=== PATIENT | female | born 1940 | race African-American/Black ===

== ENCOUNTER 2017-05-28 19:41 | Inpatient (IN) | payer MEDICARE, MEDICAID ==
[~2017-05-28] VITALS: Ht 157.5 cm; Wt 62.6 kg
[2017-05-28] MEDS ORDERED: MAG HYDROX/AL HYDROX/SIMETH 30 ML UDC PO PRN (20:00)
[2017-05-28] MEDS ORDERED: MAGNESIUM HYDROXIDE 30 ML UDC PO PRN (20:00)
[2017-05-28] MEDS ORDERED: ACETAMINOPHEN 325 MG TABLET PO PRN (20:00)
[2017-05-28] MEDS ORDERED: LORAZEPAM 0.5 MG TABLET PO PRN (20:00)
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
[2017-05-28] MEDS ORDERED: ATEN-170 PO (20:59)
[2017-05-28] MEDS ORDERED: MORP30CP13 PO (20:59)
[2017-05-28] MEDS ORDERED: LISI-656 PO (20:59)
[2017-05-28] MEDS ORDERED: DONE5TAB3 PO (20:59)
[2017-05-28] MEDS ORDERED: NITR0.4T6 SL (20:59)
[2017-05-28] MEDS ORDERED: OXYC-128 PO (20:59)
[2017-05-28] MEDS ORDERED: FLUO20CA36 PO (20:59)
[2017-05-28] MEDS ORDERED: GABA-534 PO (20:59)
[2017-05-28] MEDS ORDERED: ZOLP5TAB2 PO (20:59)
[2017-05-29] MEDS ORDERED: oxyCODONE/APAP (5/325 MG) 1 UDTAB TABLET ONE (00:06)
[2017-05-29] MEDS: oxyCODONE/APAP (5/325 MG) 1 UDTAB TABLET PO PRN ×3 (00:09→23:08)
--- NOTE | 2017-05-29 00:09 | NUR ---
GPS RN: DR. KEE CAME TO UNIT TO SEE THE PATIENT AND REQUESTED FOR PAIN MEDICATION MORPHINE, HE FURTHER EXPLAINED THAT SHE IS ORDERED PERCOCET OF THE MOMENT. PATIENT AGREED TO HAVE PERCOCET. COMPUTER TAPE LIBRARIAN-DUKE TOOK PERCOCET 5/325 ONE TAB AND SEAFOOD PROCESS WORKER ADMINISTERED TO PATIENT ORDERED. WILL MONITOR PATIENT'S PAIN STATUS. WILL ENDORSE TO DAY SHIFT NURSE.
[2017-05-29] MEDS: TEMAZEPAM 7.5 MG CAPSULE PO PRN (01:29)
--- NOTE | 2017-05-29 01:30 | NUR ---
GPS RN: PATIENT APPROACHED THE NURSE IN THE STATION. SHE REQUESTED FOR RESTORIL MEDICATION FOR SLEEP. CHARGING BOARD OPERATOR-DUKE TOOK RESTORIL 7.5 MG/CAP FROM [employer] AND RETENTION MANAGER ADMINISTERED IT TO PATIENT ORDERED. WILL MONITOR PATIENT'S SLEEP STATUS. WILL ENDORSE TO DAY SHIFT NURSE.
[2017-05-29 06:45] LABS: ALANINE AMINOTRANSFERASE 18 U/L (12-78); ALBUMIN 3.2 g/dL (3.4-5.0); ALKALINE PHOSPHATASE 70 U/L (46-116); ASPARTATE AMINOTRANSFERASE 24 U/L (15-37); BILIRUBIN,TOTAL 0.5 mg/dL (0.2-1.0); CALCIUM, SERUM 9.6 mg/dL (8.5-10.1); CARBON DIOXIDE 30 mmol/L (21-32); CHLORIDE 108 mmol/L (98-107); CREATININE 0.6 mg/dL (0.6-1.3); GLUCOSE 92 mg/dL (74-106); POTASSIUM 3.5 mmol/L (3.5-5.1); SODIUM SERUM 142 mmol/L (136-145); TOTAL PROTEIN, SERUM 7.6 g/dL (6.4-8.2); UREA NITROGEN, BLOOD 9 mg/dL (7-18)
--- NOTE | 2017-05-29 06:47 | NUR ---
GPS RN: SPOKE WITH CARLOS Moise REGARDING PATIENT'S ADMISSION TO THE UNIT. PROVIDED UNIT RULES AND POLICIES AND VISITING HOURS.
[2017-05-29 07:29] LABS: CHOLESTEROL 154 mg/dL (<200); HDL CHOLESTEROL 83 mg/dL (40-60); LDL 71 mg/dL (0-99); TRIGLYCERIDES 28 mg/dL (30-150)
[2017-05-29 08:00] VITALS: BP_SYST 110; BP_SYST 150; BP_DIAS 76; BP_DIAS 78
[2017-05-29] MEDS ORDERED: ATENOLOL 25 MG TABLET PO SCH (09:00)
[2017-05-29] MEDS ORDERED: LISINOPRIL (5MG) 5 MG TABLET PO SCH (09:00)
[2017-05-29] MEDS ORDERED: GABAPENTIN 300 MG CAPSULE PO SCH (09:00)
[2017-05-29] MEDS ORDERED: DONEPEZIL 5 MG TABLET PO SCH (09:00)
[2017-05-29] MEDS: GABAPENTIN 300 MG CAPSULE PO SCH (12:42)
--- NOTE | 2017-05-29 12:42 | NUR ---
GPS/RN PATIENT REPORTS GENERALIZED PAIN, ADMINISTERED PERCOCET 5/325, WILL CONTINUE TO MONITOR.
[2017-05-29] MEDS: DONEPEZIL 5 MG TABLET PO SCH (12:43)
[2017-05-29] MEDS: LISINOPRIL (5MG) 5 MG TABLET PO SCH ×2 (12:44→17:51)
[2017-05-29] MEDS: ATENOLOL 25 MG TABLET PO SCH ×2 (12:44→17:51)
--- NOTE | 2017-05-29 15:55 | NUR ---
Initial Discharge Plan Patient lives at [address] [place] [address], and wishes to return after discharge. Patient's granddaughter, Myriam [phone], is listed as the person to notify. Patient told social director that she does not want SW to have contact with the granddaughter. SW will follow up with MD and will work to form a safe and proper discharge.
[2017-05-29 16:06] VITALS: BP 147/104
[2017-05-29] MEDS: MORPHINE SULFATE SR 15 MG TABLET.SA PO SCH (16:48)
[2017-05-29 20:00] VITALS: BP 137/76
[2017-05-29 20:34] VITALS: BP 137/76
--- NOTE | 2017-05-29 23:10 | NUR ---
RN NOTES: PATIENT COMPLAINED OF PAIN OVER HER BACK, STATING SHE HAS LUPUS, SCALED AT 8-9/10. ADMINISTERED PERCOCET 5-325 MG PO. WILL CONT TO MONITOR.
[2017-05-30] MEDS: TEMAZEPAM 7.5 MG CAPSULE PO PRN ×2 (00:20→21:35)
--- NOTE | 2017-05-30 06:25 | NUR ---
RN NOTES: PATIENT SEEN WALKING DOWN HALLWAY, THEN TRIED TO OPEN MAIN DOOR TO GO OUT, SAYING, "I WANT TO SLEEP, BUT I CAN'T THE DOOR KEEPS GETTING OPENED." PATIENT APPEARS TO THINK THAT IT WAS THE DOOR TO HER ROOM. GUIDED PATIENT BACK TO HER ROOM.
[2017-05-30 08:35] VITALS: BP 142/77
[2017-05-30] MEDS: FLUOXETINE HCL 20 MG CAPSULE PO SCH (09:00)
[2017-05-30] MEDS: DONEPEZIL 5 MG TABLET PO SCH (09:43)
[2017-05-30] MEDS: GABAPENTIN 300 MG CAPSULE PO SCH (09:44)
[2017-05-30] MEDS: MORPHINE SULFATE SR 15 MG TABLET.SA PO SCH ×2 (09:44→17:12)
[2017-05-30] MEDS: LISINOPRIL (5MG) 5 MG TABLET PO SCH ×2 (09:45→17:13)
[2017-05-30] MEDS: ATENOLOL 25 MG TABLET PO SCH ×2 (09:46→17:12)
[2017-05-30] MEDS: oxyCODONE/APAP (5/325 MG) 1 UDTAB TABLET PO PRN (14:47)
--- NOTE | 2017-05-30 14:55 | NUR ---
patient informed SW that it was okay to contact the granddaughter.
[2017-05-30 16:00] VITALS: BP 130/85
--- NOTE | 2017-05-30 16:26 | NUR ---
With patient's permission, SW contact her granddaughter, Myriam [phone]. JANETH left a voicemail for Myriam with detailed contact information.
--- NOTE | 2017-05-30 19:30 | NUR ---
GPS RN NOTE, RECEIVED PATIENT AWAKE AND IN BED NO S/S OR COMPLAINTS OF PAIN AT THIS TIME. PATIENT IS DISPLAYING NO S/S OF APPARENT DISTRESS AT THIS TIME. PATIENT BREATHING IS UNLABORED WITH EQUAL RISE AND FALL OF THE CHEST. PATIENT IS ALERT AND ORIENTED X3 ON ROOM AIR WITH A SPOO2 95 %. PATIENT IS MED COMPLIANT, DISORGANIZED, AND NEEDS REORIENTATION. PATIENT DENIES SUICIDE IDEATIONS AND HOMICIDAL IDEATIONS AT THIS TIME. PATIENT ASSISTED WITH TURNING AND REPOSITIONING Q2HR AND PRN FOR COMFORT AND CIRCULATION. PATIENT HAS NO NEEDS AT THIS TIME. PATIENT EDUCATED ON THE USE OF THE CALL GAR. PATIENT BED SIDE RAILS UP X 2 FOR SAFETY. PATIENT BED IS LOCKED AND LOW WILL CONTINUE TO MONITOR AND MAINTAIN SAFETY Q15 MIN WITH THE HELP OF STAFF.
[2017-05-30 20:13] VITALS: BP 128/77
--- NOTE | 2017-05-30 21:35 | NUR ---
GPS RN NOTE, PATIENT HAS A COMPLAINT OF NOT BEING ABLE TO SLEEP AND IS REQUESTING RESTORIL AT THIS TIME. PATIENT VITAL SIGNS ARE STABLE. GAVE RESTORIL 7.5MG PO HS ORDERED. WILL REASSESS FOR INSOMNIA AND I WILL CONTINUE TO MONITOR THIS PATIENT.
--- NOTE | 2017-05-31 07:00 | NUR ---
RN OPENING NOTE PT RESTING CALM IN BED. DENIES SI/HI. DENIES AVH. MOVES ALL EXT. A&OX2. FREE FROM INJURY AT PRESENT. WILL CONT TO MONITOR.
[2017-05-31] MEDS: MORPHINE SULFATE SR 15 MG TABLET.SA PO SCH ×2 (08:25→16:26)
[2017-05-31] MEDS: LISINOPRIL (5MG) 5 MG TABLET PO SCH ×2 (08:26→16:27)
[2017-05-31] MEDS: GABAPENTIN 300 MG CAPSULE PO SCH (08:26)
[2017-05-31] MEDS: FLUOXETINE HCL 20 MG CAPSULE PO SCH (08:26)
[2017-05-31] MEDS: DONEPEZIL 5 MG TABLET PO SCH (08:26)
[2017-05-31] MEDS: ATENOLOL 25 MG TABLET PO SCH ×2 (08:27→16:27)
[2017-05-31 09:03] VITALS: BP 109/60
--- NOTE | 2017-05-31 09:45 | NUR ---
JANETH spoke with pt's granddaughter, Myriam [phone]. Myriam expressed some concerns about pt's past behavior, but stated that patient can return home and that she will care for her. Myriam stated that she will be able to pick patient up when it was time for discharge.
[2017-05-31] MEDS: oxyCODONE/APAP (5/325 MG) 1 UDTAB TABLET PO PRN (14:26)
[2017-05-31 16:31] VITALS: BP 124/79
--- NOTE | 2017-05-31 18:44 | NUR ---
RN CLOSING NOTE PT RESTING CALM IN BED. DENIES SI/HI. DENIES AVH. MOVES ALL EXT. A&OX2. FREE FROM INJURY AT PRESENT. WILL ENDORSE TO MICHAEL HURTADO.
[2017-05-31 19:54] VITALS: BP 100/66
[2017-05-31] MEDS: TEMAZEPAM 7.5 MG CAPSULE PO PRN (21:01)
[2017-06-01] MEDS: oxyCODONE/APAP (5/325 MG) 1 UDTAB TABLET PO PRN ×3 (06:36→20:59)
[2017-06-01 08:00] VITALS: BP 132/58
[2017-06-01] MEDS: GABAPENTIN 300 MG CAPSULE PO SCH (08:40)
[2017-06-01] MEDS: FLUOXETINE HCL 20 MG CAPSULE PO SCH (08:40)
[2017-06-01] MEDS: ATENOLOL 25 MG TABLET PO SCH ×2 (08:40→16:18)
[2017-06-01] MEDS: LISINOPRIL (5MG) 5 MG TABLET PO SCH ×2 (08:41→16:17)
[2017-06-01] MEDS: DONEPEZIL 5 MG TABLET PO SCH (08:41)
[2017-06-01] MEDS: MORPHINE SULFATE SR 15 MG TABLET.SA PO SCH ×2 (08:42→16:17)
[2017-06-01 16:00] VITALS: BP 127/87
[2017-06-01 20:00] VITALS: BP 100/71
--- NOTE | 2017-06-01 20:59 | NUR ---
GPS/RN NOTE: C/O GENERALIZED BODY PAIN, 6/10 ON PAIN SCALE, PERCOCET 5/325 MG TAB PO GIVEN.
[2017-06-01] MEDS: TEMAZEPAM 7.5 MG CAPSULE PO PRN (22:27)
--- NOTE | 2017-06-01 22:28 | NUR ---
GPS/RN NOTE: C/O INSOMNIA, TEMAZEPAM 7.5 MG CAP PO GIVEN.
[2017-06-02] MEDS: oxyCODONE/APAP (5/325 MG) 1 UDTAB TABLET PO PRN ×3 (05:43→20:39)
[2017-06-02 08:00] VITALS: BP 133/80
[2017-06-02] MEDS: DONEPEZIL 5 MG TABLET PO SCH (09:08)
[2017-06-02] MEDS: LISINOPRIL (5MG) 5 MG TABLET PO SCH ×2 (09:08→18:16)
[2017-06-02] MEDS: FLUOXETINE HCL 20 MG CAPSULE PO SCH (09:08)
[2017-06-02] MEDS: GABAPENTIN 300 MG CAPSULE PO SCH (09:08)
[2017-06-02] MEDS: ATENOLOL 25 MG TABLET PO SCH ×2 (09:09→18:16)
[2017-06-02] MEDS: MORPHINE SULFATE SR 15 MG TABLET.SA PO SCH ×2 (09:09→18:15)
--- NOTE | 2017-06-02 13:18 | NUR ---
RN NOTES ADMINISTERED PERCOCET 5/325 MG PO PRN FOR GENERALIZED PAIN 04/15, PER PATIENT REQUEST, V/S TAKEN BP -130/83, P-65, CONTINUED MONITORING.
[2017-06-02 16:00] VITALS: BP 117/70
[2017-06-02] MEDS ORDERED: [UNRECOGNIZED DRUG - OTHER] PO SCH (18:54)
[2017-06-02] MEDS ORDERED: [UNRECOGNIZED DRUG - OTHER] PO SCH (18:54)
[2017-06-02] MEDS: TEMAZEPAM 7.5 MG CAPSULE PO PRN (21:45)
--- NOTE | 2017-06-03 02:55 | NUR ---
GPS-RN PT IS WALKING IN THE HALLWAY, HOLDING HER CHEST. STAFF IS ASKING WHAT DO YOU NEED. PT STARTED TO COMPLAIN OF CHEST PAIN. ASSIST PATIENT BACK TO HER ROOM. PUT HER IN BED CHECK VITAL SIGNS BP 200/106 HR 80. GIVE NITROGLYCERIN 0.4MG SUBLINGUAL AT 0300, 0305, 0310. PT STILL COMPLAIN OF CHEST PAIN. CALLED RAPID RESPONSE. PAGED DR. ADAMS. ORDERED TO TRANSFER PT TO TELE.
[2017-06-03] MEDS: NITROGLYCERIN 0.4 MG/TAB BOTTLE SL PRN ×3 (03:00→03:10)
[2017-06-03 03:10] VITALS: BP 158/93
[2017-06-03] MEDS ORDERED: MORPHINE SULFATE INJ 4 MG/ML DISP.SYRIN ONE (03:25)
[2017-06-03 03:31] LABS: BASOPHILS # (AUTO) 0.1 /CMM (0.0-0.2); BASOPHILS % (AUTO) 0.9 % (0.0-2.0); EOSINOPHILS # (AUTO) 0.4 /CMM (0.0-0.7); EOSINOPHILS % (AUTO) 5.9 % (0.0-6.0); HEMATOCRIT 38 % (33-45); HEMOGLOBIN 12.1 g/dL (11.5-14.8); LYMPHOCYTES # (AUTO) 2.5 /CMM (0.8-4.8); LYMPHOCYTES % (AUTO) 35.1 % (20.0-44.0); MEAN CORPUSCULAR HEMOGLOBIN 27 PG (26.0-33.0); MEAN CORPUSCULAR HGB CONC 32 g/dl (31.0-36.0); MEAN CORPUSCULAR VOLUME 84 fL (82-100); MONOCYTES # (AUTO) 0.8 /CMM (0.1-1.30); MONOCYTES % (AUTO) 11.7 % (2.0-12.0); NEUTROPHILS # (AUTO) 3.3 /CMM (1.8-8.9); NEUTROPHILS % (AUTO) 46.4 % (43.0-81.0); PLATELET COUNT (AUTO) 283 /CMM (150-450); RDW COEFFICIENT OF VARIATION 13.9 (11.5-15.0); RED BLOOD CELL COUNT(AUTO) 4.49 MIL/uL (4.0-5.2); WHITE BLOOD COUNT (AUTO) 7.1 K/uL (4.3-11.0)
[2017-06-03 03:42] LABS: CALCIUM, SERUM 9.7 mg/dL (8.5-10.1); CARBON DIOXIDE 30 mmol/L (21-32); CHLORIDE 102 mmol/L (98-107); CREATININE 0.7 mg/dL (0.6-1.3); GLUCOSE 97 mg/dL (74-106); POTASSIUM 4.3 mmol/L (3.5-5.1); SODIUM SERUM 138 mmol/L (136-145); UREA NITROGEN, BLOOD 13 mg/dL (7-18)
[2017-06-03] MEDS ORDERED: ASPIRIN 325 MG TABLET ONE (03:43)
[2017-06-03 03:48] LABS: ALANINE AMINOTRANSFERASE 43 U/L (12-78); ALBUMIN 3.4 g/dL (3.4-5.0); ALKALINE PHOSPHATASE 109 U/L (46-116); ASPARTATE AMINOTRANSFERASE 90 U/L (15-37); BILIRUBIN,TOTAL 0.6 mg/dL (0.2-1.0); TROPONIN I < 0.017 ng/mL (0.00-0.056)
--- NOTE | 2017-06-03 03:59 | NUR ---
GPS RN PT TRANSFER TO TELE.
[2017-06-03] MEDS ORDERED: MORPHINE SULFATE INJ 4 MG/ML DISP.SYRIN IV ONE (04:00)
[2017-06-03] MEDS ORDERED: ASPIRIN 325 MG TABLET PO ONE (04:00)
[2017-06-03 04:09] LABS: MAGNESIUM 2.1 mg/dL (1.8-2.4); PHOSPHORUS 3.2 mg/dL (2.5-4.9)
== END 2017-06-03 03:55 | disposition home or self-care (01) | DRG 885 ==
LOC: GPS 19:41
PROVIDERS: ADMIT Psychiatry & Neurology Psychiatry; ATTEND Psychiatry & Neurology Psychiatry
DX: F33.2 Major depressive disorder, recurrent severe without psychotic features (principal); E44.1 Mild protein-calorie malnutrition; G62.9 Polyneuropathy, unspecified; R45.851 Suicidal ideations; F03.90 Unspecified dementia, unspecified severity, without behavioral disturbance, psychotic disturbance, mood disturbance, and anxiety; M79.7 Fibromyalgia; I10 Essential (primary) hypertension; G89.4 Chronic pain syndrome; Z79.899 Other long term (current) drug therapy; F41.9 Anxiety disorder, unspecified; F29 Unspecified psychosis not due to a substance or known physiological condition; Z73.6 Limitation of activities due to disability
CPT/HCPCS: 36415; 80053-TC; 80061-TC; 83735-TC; 84100-TC; 84484-TC; 85025-TC; 87081-TC; J2270; Z7610

== ENCOUNTER 2017-06-03 04:29 | Inpatient (IN) | payer MEDICARE, MEDICAID ==
[~2017-06-03] VITALS: Ht 157.5 cm; Wt 56.7 kg
--- NOTE | 2017-06-03 04:00 | NUR ---
CEMENT FINISHER NOTES Received patient in no apparent distress. patient is alert and oriented x3, able to make needs known. No SOB noted, O2 inhalation via nasal cannula in place saturating 98%. No c/o pain or discomfort at this time. Patient was transferred from [facility] and patient is on a 72 hr hold,. patient appears to be relaxed and compliant for nursing care. patient is cooperative during admission interview. All needs attended. patient oriented to room, provided a quiet and comfortable environment. Skin assessment done, no skin breakdown noted. Called Md for admission orders, notifird of the admission. Will continue to monitor patient.
[~2017-06-03 04:29] MED LIST: ATEN-170 PO; DONE5TAB3 PO; GABA-534 PO; LISI-656 PO; MORP30CP13 PO; NITR0.4T6 SL; OXYC-128 PO
[2017-06-03] MEDS ORDERED: HYDROCODONE/APAP 5/325MG 1 EACH TABLET PO PRN (06:30)
[2017-06-03] MEDS ORDERED: MAG HYDROX/AL HYDROX/SIMETH 30 ML UDC PO PRN (06:30)
[2017-06-03] MEDS ORDERED: NITROGLYCERIN 0.4 MG/TAB BOTTLE SL PRN (06:30)
[2017-06-03] MEDS ORDERED: Z GUARD REMEDY 2 OZ OINT TP PRN (06:30)
[2017-06-03] MEDS ORDERED: MAGNESIUM HYDROXIDE 30 ML UDC PO PRN (06:30)
[2017-06-03] MEDS ORDERED: ONDANSETRON HCL/PF 4 MG/2 ML VIAL IVP PRN (06:30)
[2017-06-03] MEDS ORDERED: ACETAMINOPHEN 325 MG TABLET PO PRN (06:30)
--- NOTE | 2017-06-03 07:30 | NUR ---
RN MS NOTES PT IN BED, ASLEEP, RESPIRATIONS NORMAL AND NOT LABORED, EASY TO AROUSE, NO COMPLAINT OF PAIN AT THIS TIME, CALL LIGHT WITHIN REACH, SITTER AT BEDSIDE.
[2017-06-03 08:00] VITALS: BP 137/71
[2017-06-03] MEDS ORDERED: GABAPENTIN 300 MG CAPSULE PO SCH (09:00)
[2017-06-03] MEDS: DONEPEZIL 5 MG TABLET PO SCH (09:24)
[2017-06-03] MEDS: LISINOPRIL (5MG) 5 MG TABLET PO SCH ×2 (09:24→17:00)
[2017-06-03] MEDS: ATENOLOL 25 MG TABLET PO SCH ×2 (09:24→17:00)
[2017-06-03] MEDS: MORPHINE SULFATE SR 15 MG TABLET.SA PO SCH ×2 (09:47→17:18)
[2017-06-03 11:35] LABS: THYROID STIMULATING HORMONE 0.858 uIU/mL (0.358-3.74)
[2017-06-03] MEDS: oxyCODONE/APAP (5/325 MG) 1 UDTAB TABLET PO SCH (12:45)
[2017-06-03] MEDS: ASPIRIN 81 MG TAB.CHEW PO SCH (12:45)
[2017-06-03] MEDS: ENOXAPARIN SODIUM 40 MG/0.4 ML DISP.SYRIN SQ SCH (12:51)
--- NOTE | 2017-06-03 13:00 | NUR ---
ELEMENTARY READING TUTOR NOTES PT IN BED, DUE MEDICATIONS GIVEN ORDERED, SEEN BY DR. NAVAS AND DR. OCHOA, PLAN OF CARE DISCUSSED WITH PT, VERBALIZED UNDERSTANDING, SO FAR COMPLIANT AND COOPERATIVE WITH NURSING CARE, SITTER AT BEDSIDE.
--- NOTE | 2017-06-03 19:00 | NUR ---
PE ELECTRICAL ENGINEER NOTES PT IN BED, AWAKE, ALERT AND ORIENTED, PM MEDS GIVEN ORDERED, CALM AND COOPERATIVE WITH CARE, FOR [place] TOMORROW, PT INFORMED, CONSENT GIVEN, NO BEHAVIOR PROBLEM NOTED, PM CARE RENDERED, ALL NEEDS ATTENDED.
--- NOTE | 2017-06-03 19:35 | NUR ---
NIGHT COORDINATOR NOTE RECEIVED PATIENT FROM DAY SHIFT, PATIENT IS ALERT AND ORIENTEDX3, ON BED REST WITH 1:1 SITTER DUE TO 5250 HOLD. NO S/S OF RESPIRATORY DISTRESS AND NO COMPLAINS OF CHEST PAIN NOTED. TELE MONITOR SB 56. SRX2, BED IN LOW POSITION, CALL LIGHT WITHIN REACH, WILL CONTINUE TO MONITOR PATIENT.
[2017-06-03 20:00] VITALS: BP 130/76
[2017-06-03] MEDS: ZOLPIDEM TARTRATE 5 MG TABLET PO PRN ×2 (21:48→23:32)
--- NOTE | 2017-06-03 22:20 | NUR ---
FEATHER DRYING MACHINE OPERATOR NOTE PATIENT COMPLAINS OF LEFT SHOULDER PAIN, WANTS TO TAKE PERCOCET. CURRENT ORDER IS PERCOCET DAILY AT NOON. SPOKE WITH DR. ADAMS, GOT AN ORDER OF PERCOCET 5/325MG PO ONCE ONLY. ORDERS PUT IN AND WILL CARRY OUT.
[2017-06-03] MEDS ORDERED: oxyCODONE/APAP (5/325 MG) 1 UDTAB TABLET PO ONE (22:30)
[2017-06-03 23:15] VITALS: BP 130/76
--- NOTE | 2017-06-03 23:47 | NUR ---
SHOE RECONDITIONER NOTE PATIENT COMPLAINS OF CHEST PAIN 5/10, BP 154/80 PULSE 66. TELE MONITOR SR 70. NITRO SL 0.4MG GIVEN.
[2017-06-04 06:00] VITALS: BP 161/96
--- NOTE | 2017-06-04 06:38 | NUR ---
PROFESSIONAL SECURITY OFFICER NOTE PATIENT IS SLEEPING IN BED COMFORTABLY, NO S/S OF RESPIRATORY DISTRESS NOTED. IV ON LEFT FA IS PATENT AND INTACT, SL ONLY. 1:1 SITTER FOR SAFETY. TELE MONITOR SR 66. WILL ENDORSE TO DAY SHIFT NURSE FOR DIYA.
[2017-06-04 07:05] VITALS: BP 161/96
--- NOTE | 2017-06-04 07:34 | NUR ---
COMMERCIAL LOAN REVIEWER OPENING NOTES PATIENT IN BED SLEEPING COMFORTABLY, AROUSES EASILY. A/OX3. NO ACUTE DISTRESS, NO SOB NOTED. DENIES PAIN AT THIS TIME. IV SITE INTACT AND PATENT. TELE SR 68. SITTER ON BEDSIDE FOR SAFETY. BED IN LOW POSITION, LOCKED, SIDERAILS UP X2. WILL CONTINUE TO MONITOR ACCORDINGLY.
[2017-06-04] MEDS: MORPHINE SULFATE SR 15 MG TABLET.SA PO SCH ×2 (09:25→16:53)
[2017-06-04 09:46] LABS: BASOPHILS # (AUTO) 0.1 /CMM (0.0-0.2); BASOPHILS % (AUTO) 0.9 % (0.0-2.0); EOSINOPHILS # (AUTO) 0.2 /CMM (0.0-0.7); EOSINOPHILS % (AUTO) 4.6 % (0.0-6.0); HEMATOCRIT 39 % (33-45); HEMOGLOBIN 12.6 g/dL (11.5-14.8); LYMPHOCYTES # (AUTO) 1.4 /CMM (0.8-4.8); LYMPHOCYTES % (AUTO) 26.1 % (20.0-44.0); MEAN CORPUSCULAR HEMOGLOBIN 27 PG (26.0-33.0); MEAN CORPUSCULAR HGB CONC 32 g/dl (31.0-36.0); MEAN CORPUSCULAR VOLUME 83 fL (82-100); MONOCYTES # (AUTO) 0.5 /CMM (0.1-1.30); MONOCYTES % (AUTO) 9.3 % (2.0-12.0); NEUTROPHILS # (AUTO) 3.1 /CMM (1.8-8.9); NEUTROPHILS % (AUTO) 59.1 % (43.0-81.0); PLATELET COUNT (AUTO) 285 /CMM (150-450); RDW COEFFICIENT OF VARIATION 13.7 (11.5-15.0); RED BLOOD CELL COUNT(AUTO) 4.72 MIL/uL (4.0-5.2); WHITE BLOOD COUNT (AUTO) 5.3 K/uL (4.3-11.0)
--- NOTE | 2017-06-04 09:55 | NUR ---
RN NOTES: MD VISIT SEEN AND EXAMINED BY DR. OCHOA WITH VERBAL ORDERS FOR COLACE 100MG PO BID AND GIVE INFLUENZA VACCINE. ORDERS READ BACK AND CARRIED OUT AND ACKNOWLEDGED. ALSO PT C/O CONSTIPATION, AND OKAY TO DO MANUAL DISIMPACTION PER MD STATED.
[2017-06-04] MEDS ORDERED: FLU VACC QS 2017-18(36MOS+)/PF 0.5 ML DISP.SYRIN IM ONE (10:00)
[2017-06-04] MEDS: ASPIRIN 81 MG TAB.CHEW PO SCH (10:13)
[2017-06-04] MEDS: GABAPENTIN 100 MG CAPSULE PO SCH ×2 (10:13→16:53)
[2017-06-04] MEDS: DONEPEZIL 5 MG TABLET PO SCH (10:13)
[2017-06-04] MEDS: ATENOLOL 25 MG TABLET PO SCH ×2 (10:14→16:53)
[2017-06-04] MEDS: LISINOPRIL (5MG) 5 MG TABLET PO SCH ×2 (10:15→16:52)
--- NOTE | 2017-06-04 10:15 | NUR ---
RN NOTES PER DR NAVAS, OK TO GIVE AM MEDS
[2017-06-04 10:17] LABS: CALCIUM, SERUM 9.5 mg/dL (8.5-10.1); CARBON DIOXIDE 29 mmol/L (21-32); CHLORIDE 105 mmol/L (98-107); CREATININE 0.6 mg/dL (0.6-1.3); GLUCOSE 102 mg/dL (74-106); MAGNESIUM 1.9 mg/dL (1.8-2.4); PHOSPHORUS 2.5 mg/dL (2.5-4.9); POTASSIUM 3.7 mmol/L (3.5-5.1); SODIUM SERUM 140 mmol/L (136-145); UREA NITROGEN, BLOOD 9 mg/dL (7-18)
[2017-06-04 10:18] LABS: CHOLESTEROL 165 mg/dL (<200); HDL CHOLESTEROL 80 mg/dL (40-60); LDL 80 mg/dL (0-99); TRIGLYCERIDES 63 mg/dL (30-150)
[2017-06-04] MEDS: ENOXAPARIN SODIUM 40 MG/0.4 ML DISP.SYRIN SQ SCH (10:19)
[2017-06-04] MEDS: DOCUSATE SODIUM 100 MG CAPSULE PO SCH ×2 (10:21→16:52)
[2017-06-04] MEDS ORDERED: REGADENOSON 0.4 MG/5 ML DISP.SYRIN IVP ONE (10:30)
--- NOTE | 2017-06-04 11:15 | NUR ---
ENGINEERING MECHANIC: P.T. EVAL UP WITH P.T. USING OWN CANE, PT TOLERATED.
--- NOTE | 2017-06-04 11:57 | NUR ---
teletype telegrapher: notes tele removed as ordered.
[2017-06-04] MEDS: oxyCODONE/APAP (5/325 MG) 1 UDTAB TABLET PO SCH (12:18)
--- NOTE | 2017-06-04 13:00 | NUR ---
M/S RN: NOTES TAKEN DOWN FOR STRESS TEST VIA W/C AT THIS TIME.
--- NOTE | 2017-06-04 14:13 | NUR ---
M/S RN: NOTES BACK FROM STRESS TEST AND TO BE WIRELESS COMMUNICATIONS ENGINEER AGAIN IN AN HOUR FOR PHASE 2 PER TREMAYNE. LUNCH SERVED. HOB ELEVATED. REMAINS ON 1:1 SITTER. DENIES SI/HI AT THIS TIME. WILL CONTINUE TO MONITOR.
--- NOTE | 2017-06-04 16:45 | NUR ---
M/S RN: NOTES STRESS TEST COMPLETED, PT BACK TO BED. CONTINUE ON 1:1 SITTER. INSTRUCTED TO CALL FOR ASSISTANCE. WILL CONTINUE TO MONITOR.
[2017-06-04 16:49] VITALS: BP 158/87
--- NOTE | 2017-06-04 19:20 | NUR ---
RN CLOSING NOTES PATIENT IN BED RESTING. NO ACUTE DISTRESS, NO SOB NOTED. ALL NEEDS ATTENDED AND PROVIDED. SITTER ON BEDSIDE. KEPT PATIENT SAFE AND COMFORTABLE. BED IN LOW POSITION, LOCKED, SIDERAILS UPX2. CALL LIGHT IN REACH. ENDORSED TO NIGHT RN FOR DIYA.
--- NOTE | 2017-06-04 19:35 | NUR ---
MS RN INITIAL NOTES PT IS IN BED A/O X3, IN GOOD SPIRITS. ABLE TO MAKE NEEDS KNOWN. ON 1:1 SITTER. NO SIGNS OF SOB OR DISTRESS. BREATHING EVENLY AND UNLABORED ON ROOM AIR. BED IS IN LOW AN LOCKED POSITION, CALL LIGHT WITHIN REACH. WILL CONTINUE TO MONITOR
[2017-06-04 20:00] VITALS: BP 142/82
[2017-06-04] MEDS ORDERED: GABAPENTIN 300 MG CAPSULE PO SCH (22:00)
[2017-06-04] MEDS: ZOLPIDEM TARTRATE 5 MG TABLET PO PRN (22:01)
[2017-06-05 01:00] VITALS: BP 142/86
--- NOTE | 2017-06-05 06:14 | NUR ---
MS RN NOTE PATIENT IS SLEEPING IN BED COMFORTABLY, PT HAS BEEN CALM AND COOPERATIVE THROUGHOUT THE SHIFT. NO S/S OF RESPIRATORY DISTRESS NOTED. 1:1 SITTER FOR SAFETY. WILL ENDORSE TO DAY SHIFT NURSE.
[2017-06-05 06:59] LABS: BASOPHILS % (AUTO) 0.7 % (0.0-2.0); EOSINOPHILS # (AUTO) 0.4 /CMM (0.0-0.7); HEMATOCRIT 36 % (33-45); HEMOGLOBIN 11.6 g/dL (11.5-14.8); LYMPHOCYTES # (AUTO) 1.5 /CMM (0.8-4.8); LYMPHOCYTES % (AUTO) 25.2 % (20.0-44.0); MEAN CORPUSCULAR HEMOGLOBIN 27 PG (26.0-33.0); MEAN CORPUSCULAR HGB CONC 33 g/dl (31.0-36.0); MEAN CORPUSCULAR VOLUME 84 fL (82-100); MONOCYTES # (AUTO) 0.7 /CMM (0.1-1.30); MONOCYTES % (AUTO) 12.2 % (2.0-12.0); NEUTROPHILS # (AUTO) 3.3 /CMM (1.8-8.9); NEUTROPHILS % (AUTO) 55.9 % (43.0-81.0); PLATELET COUNT (AUTO) 260 /CMM (150-450); RDW COEFFICIENT OF VARIATION 13.5 (11.5-15.0); RED BLOOD CELL COUNT(AUTO) 4.24 MIL/uL (4.0-5.2); WHITE BLOOD COUNT (AUTO) 5.9 K/uL (4.3-11.0)
[2017-06-05 07:25] LABS: CALCIUM, SERUM 9.1 mg/dL (8.5-10.1); CARBON DIOXIDE 26 mmol/L (21-32); CHLORIDE 104 mmol/L (98-107); CREATININE 0.6 mg/dL (0.6-1.3); GLUCOSE 94 mg/dL (74-106); MAGNESIUM 1.9 mg/dL (1.8-2.4); PHOSPHORUS 3.5 mg/dL (2.5-4.9); POTASSIUM 3.4 mmol/L (3.5-5.1); SODIUM SERUM 140 mmol/L (136-145); UREA NITROGEN, BLOOD 10 mg/dL (7-18)
--- NOTE | 2017-06-05 07:33 | NUR ---
RN OPENING NOTES PATIENT IN BED ASLEEP, AROUSED EASILY. A/OX3. NO ACUTE DISTRESS, NO SOB NOTED. DENIES PAIN AT THIS TIME. KEPT SAFE AND COMFORTABLE. BED IN LOW POSITION, LOCKED, SIDERAILS UPX2. CALL LIGHT WITHIN REACH. WILL CONTINUE TO MONITOR ACCORDINGLY.
[2017-06-05 08:37] VITALS: BP 129/77
[2017-06-05] MEDS ORDERED: FLUOXETINE HCL 20 MG CAPSULE PO SCH (09:00)
[2017-06-05] MEDS: ENOXAPARIN SODIUM 40 MG/0.4 ML DISP.SYRIN SQ SCH (09:55)
[2017-06-05] MEDS: LISINOPRIL (5MG) 5 MG TABLET PO SCH (09:56)
[2017-06-05] MEDS: ATENOLOL 25 MG TABLET PO SCH (09:57)
[2017-06-05] MEDS: GABAPENTIN 100 MG CAPSULE PO SCH (09:57)
[2017-06-05] MEDS: DOCUSATE SODIUM 100 MG CAPSULE PO SCH (09:57)
[2017-06-05] MEDS: ASPIRIN 81 MG TAB.CHEW PO SCH (09:58)
[2017-06-05] MEDS: DONEPEZIL 5 MG TABLET PO SCH (09:58)
[2017-06-05] MEDS: MORPHINE SULFATE SR 15 MG TABLET.SA PO SCH (10:08)
[2017-06-05] MEDS ORDERED: ASPI81TA2 PO (12:11)
[2017-06-05] MEDS ORDERED: DOCU-25 PO (12:11)
[2017-06-05] MEDS: oxyCODONE/APAP (5/325 MG) 1 UDTAB TABLET PO SCH (12:36)
[2017-06-05] MEDS ORDERED: POTASSIUM CHLORIDE 20 MEQ TAB.PRT.SR PO SCH (13:00)
[2017-06-05 14:00] VITALS: BP 145/67
--- NOTE | 2017-06-05 14:30 | NUR ---
RN NOTES DISCHARGE PATIENT TO GPS, ACCOMPANIED BY TREMAYNE DAVIDSON. REPORT GIVEN TO BRYANT LEOS FROM GPS. DISCHARGE INSTRUCTIONS/EXITCARE DONE. DISCHARGE PAPERWORK GIVEN. ALL BELONGINGS GIVEN BACK TO PATIENT. D/C IV SITE, NO COMPLICATIONS, NO BLEEDING NOTED.
== END 2017-06-05 14:34 | DRG 313 ==
LOC: UNDOADMIN 04:29 → TELE 04:29 → MED 06-04 11:00
PROVIDERS: ADMIT Family Medicine; ATTEND Internal Medicine
DX: R07.89 Other chest pain (principal); I25.10 Atherosclerotic heart disease of native coronary artery without angina pectoris; F32.3 Major depressive disorder, single episode, severe with psychotic features; G62.9 Polyneuropathy, unspecified; F03.90 Unspecified dementia, unspecified severity, without behavioral disturbance, psychotic disturbance, mood disturbance, and anxiety; E78.5 Hyperlipidemia, unspecified; G89.4 Chronic pain syndrome; I10 Essential (primary) hypertension; F29 Unspecified psychosis not due to a substance or known physiological condition; M79.7 Fibromyalgia; K59.00 Constipation, unspecified; I25.2 Old myocardial infarction; Z79.899 Other long term (current) drug therapy
CPT/HCPCS: 36415; 80048-TC; 80061-TC; 82306; 83735-TC; 84100-TC; 84439-TC; 84443-TC; 84484-TC; 85025-TC; 87081-TC; 93307-TC; A9502; J1650; J2785; Q2036

== ENCOUNTER 2017-06-05 14:52 | Inpatient (IN) | payer MEDICARE, MEDICAID ==
[~2017-06-05] VITALS: Ht 160 cm; Wt 58.1 kg
[~2017-06-05 14:52] MED LIST changes: +ASPI81TA2 PO; +DOCU-25 PO
[2017-06-05 15:11] VITALS: BP 161/86
--- NOTE | 2017-06-05 15:11 | NUR ---
MERGERS AND ACQUISITIONS CONSULTANT NOTES PATIENT ADMITTED FROM [facility] ON 5249 HOLD DX OF PSYCHOSIS NOS, DEPRESSION, BIPOLAR D/O. PATIENT A/O X2/3, MED COMPLIANT, NO C/ O PAIN AT THIS TIME, NO RESPIRATORY DISTRESS. V/S TAKEN T-97.8, P-63, R-19, O2-97 ROOM AIR, BP -161/86. MRSA OF NARES SWAB TAKEN. ON FACE TO FACE ASSESSMENT PATIENT DENIED SI/HI AT THIS TIME. SKIN ASSESSMENT DONE, SKIN CLEAR. PATIENT AMBULATORY, NEED SOME PARTY PLAN SALES AGENT ADL'S, AND BATHROOM, BELONGING AND CONTRABAND CHECKED. DR KEE, AND DR SWANSON AWARE OF NEW PATIENT, AND NEW MEDICATION. PATIENT RIGHT HAND BOOK GIVEN, AND EXPLAINED TO. CONTINUED MONITORING.
[2017-06-05 15:36] VITALS: BP 161/86
[2017-06-05] MEDS: oxyCODONE/APAP (5/325 MG) 1 UDTAB TABLET PO SCH ×2 (16:00→17:56)
[2017-06-05] MEDS ORDERED: MAG HYDROX/AL HYDROX/SIMETH 30 ML UDC PO PRN (16:30)
[2017-06-05] MEDS ORDERED: LORAZEPAM 0.5 MG TABLET PO PRN (16:30)
[2017-06-05] MEDS ORDERED: MAGNESIUM HYDROXIDE 30 ML UDC PO PRN (16:30)
[2017-06-05] MEDS: DOCUSATE SODIUM 100 MG CAPSULE PO SCH ×2 (17:00→17:56)
[2017-06-05] MEDS: ATENOLOL 25 MG TABLET PO SCH ×2 (17:00→17:57)
[2017-06-05] MEDS: LISINOPRIL (5MG) 5 MG TABLET PO SCH ×2 (17:00→17:56)
--- NOTE | 2017-06-05 17:00 | NUR ---
rn notes PATIENT REFUSED BP MEDICATION, REFUSED V/S TO BED TAKEN, REFUSED PAIN MEDICATION, AND REFUSED DINNER, PATIENT AMBULATING IN THE HALLWAY, SAFETY PRECAUTION MAINTAINED ALL THE TIME.
--- NOTE | 2017-06-05 19:00 | NUR ---
RN NOTES PATIENT SITTING IN THE JOSEPH CHAIR, NO ACUTE DISTRESS, STILL REFUSED V/S TO BE TAKEN, SAFETY PRECAUTION MAINTAINED ALL THE TIME, ENDORSED ONCOMING NURSE FOR CONTINUATION OF CARE.
[2017-06-05] MEDS: MORPHINE SULFATE SR 15 MG TABLET.SA PO SCH (21:00)
[2017-06-06 08:00] VITALS: BP 180/99
[2017-06-06] MEDS: FLUOXETINE HCL 20 MG CAPSULE PO SCH (09:11)
[2017-06-06] MEDS: ATENOLOL 25 MG TABLET PO SCH ×2 (09:12→16:20)
[2017-06-06] MEDS: GABAPENTIN 300 MG CAPSULE PO SCH (09:12)
[2017-06-06] MEDS: DOCUSATE SODIUM 100 MG CAPSULE PO SCH ×2 (09:12→16:20)
[2017-06-06] MEDS: ASPIRIN 81 MG TAB.CHEW PO SCH (09:12)
[2017-06-06] MEDS: DONEPEZIL 5 MG TABLET PO SCH (09:12)
[2017-06-06] MEDS: LISINOPRIL (5MG) 5 MG TABLET PO SCH ×2 (09:12→16:20)
[2017-06-06] MEDS: MORPHINE SULFATE SR 15 MG TABLET.SA PO SCH ×2 (09:13→21:23)
--- NOTE | 2017-06-06 09:36 | NUR ---
PT REFUSING TO HAVE LAB DRAWS THIS MORNING. EXPLAINED TO HER THE NECESSITY TO SEE IF SHE HAS ANY LAB ABNORMALITIES, BUT PT STILL REFUSES. THIS MORNING SHE REFUSED MORNING MEDICATIONS INITIALLY BUT AFTER THOROUGHLY EXPLAINING TO HER SHE AGREED TO TAKE THEM.
--- NOTE | 2017-06-06 11:15 | NUR ---
SW attests that the information obtained by the previous assessment is still valid. There have been no new changes in patient's history since her discharge from the [facility] on May 24. Patient had been in the med surg floor for chest pains, but is now medically cleared and is back at the psych unit. Upon face to face with public health social worker, patient presented with a sad affect/mood. Patient's motor activity was calm. Patient denied suicidal and homicidal ideation. Patient reported no auditory or visual hallucinations. SW asked patient if she was still comfortable going home with her granddaughter and patient stated that she was. Addendum: 06/06/17 at 1118 by LEE FOWLER patient's call or contact centre manager is her granddaughter, Myriam, ,
[2017-06-06] MEDS: oxyCODONE/APAP (5/325 MG) 1 UDTAB TABLET PO SCH (12:19)
[2017-06-06 16:00] VITALS: BP 129/59
[2017-06-06 20:00] VITALS: BP 122/80
[2017-06-07 08:00] VITALS: BP 120/78
[2017-06-07] MEDS: DOCUSATE SODIUM 100 MG CAPSULE PO SCH ×2 (08:23→16:17)
[2017-06-07] MEDS: LISINOPRIL (5MG) 5 MG TABLET PO SCH ×2 (08:23→16:18)
[2017-06-07] MEDS: GABAPENTIN 300 MG CAPSULE PO SCH (08:23)
[2017-06-07] MEDS: FLUOXETINE HCL 20 MG CAPSULE PO SCH (08:23)
[2017-06-07] MEDS: ASPIRIN 81 MG TAB.CHEW PO SCH (08:24)
[2017-06-07] MEDS: DONEPEZIL 5 MG TABLET PO SCH (08:24)
[2017-06-07] MEDS: ATENOLOL 25 MG TABLET PO SCH ×2 (08:24→16:18)
[2017-06-07] MEDS: MORPHINE SULFATE SR 15 MG TABLET.SA PO SCH ×2 (08:34→21:30)
[2017-06-07] MEDS: oxyCODONE/APAP (5/325 MG) 1 UDTAB TABLET PO SCH (12:03)
[2017-06-07 15:56] VITALS: BP 131/78
[2017-06-07 20:00] VITALS: BP 111/76
--- NOTE | 2017-06-08 08:00 | NUR ---
GPS RN AM NOTES PATIENT A/O X2/3, MED COMPLIANT, NO C/ O PAIN AT THIS TIME, NO RESPIRATORY DISTRESS. SKIN CLEAR. PATIENT AMBULATORY, NEED SOME EDGING MACHINE FEEDER ADL'S, AND BATHROOM.CONTINUED MONITORING.
[2017-06-08] MEDS: ATENOLOL 25 MG TABLET PO SCH ×2 (09:00→16:46)
[2017-06-08] MEDS: LISINOPRIL (5MG) 5 MG TABLET PO SCH ×2 (09:00→16:46)
[2017-06-08] MEDS: FLUOXETINE HCL 20 MG CAPSULE PO SCH (09:07)
[2017-06-08] MEDS: MORPHINE SULFATE SR 15 MG TABLET.SA PO SCH ×2 (09:07→21:09)
[2017-06-08] MEDS: ASPIRIN 81 MG TAB.CHEW PO SCH (09:07)
[2017-06-08] MEDS: DOCUSATE SODIUM 100 MG CAPSULE PO SCH ×2 (09:07→16:47)
[2017-06-08] MEDS: DONEPEZIL 5 MG TABLET PO SCH (09:08)
[2017-06-08] MEDS: GABAPENTIN 300 MG CAPSULE PO SCH (09:08)
[2017-06-08] MEDS: oxyCODONE/APAP (5/325 MG) 1 UDTAB TABLET PO SCH ×2 (12:00→18:23)
--- NOTE | 2017-06-08 12:45 | NUR ---
PT HAS BEEN REFUSING BP TO BE CHECKED AND REFUSED BP MEDS WELL INSPITE OF EXPLAINING ITS RISKS AND CONSEQUENCES.
[2017-06-08 16:00] VITALS: BP 155/93
[2017-06-08 20:00] VITALS: BP 159/90
[2017-06-08] MEDS: TEMAZEPAM 7.5 MG CAPSULE PO PRN (22:03)
[2017-06-09 08:00] VITALS: BP 151/99
[2017-06-09] MEDS: DOCUSATE SODIUM 100 MG CAPSULE PO SCH ×2 (08:39→17:26)
[2017-06-09] MEDS: MORPHINE SULFATE SR 15 MG TABLET.SA PO SCH ×2 (08:39→21:01)
[2017-06-09] MEDS: GABAPENTIN 300 MG CAPSULE PO SCH (08:40)
[2017-06-09] MEDS: FLUOXETINE HCL 20 MG CAPSULE PO SCH (08:40)
[2017-06-09] MEDS: ATENOLOL 25 MG TABLET PO SCH ×2 (08:40→17:25)
[2017-06-09] MEDS: DONEPEZIL 5 MG TABLET PO SCH (08:41)
[2017-06-09] MEDS: LISINOPRIL (5MG) 5 MG TABLET PO SCH ×2 (08:41→17:26)
[2017-06-09] MEDS: ASPIRIN 81 MG TAB.CHEW PO SCH (08:42)
[2017-06-09] MEDS: oxyCODONE/APAP (5/325 MG) 1 UDTAB TABLET PO SCH (12:06)
[2017-06-09 16:08] VITALS: BP 121/84
[2017-06-09 20:00] VITALS: BP 150/96
[2017-06-09] MEDS: TEMAZEPAM 7.5 MG CAPSULE PO PRN (22:26)
[2017-06-10 06:25] VITALS: BP 135/75
[2017-06-10 08:00] VITALS: BP 142/88
[2017-06-10] MEDS: ASPIRIN 81 MG TAB.CHEW PO SCH (08:16)
[2017-06-10] MEDS: MORPHINE SULFATE SR 15 MG TABLET.SA PO SCH ×2 (08:17→21:11)
[2017-06-10] MEDS: ATENOLOL 25 MG TABLET PO SCH ×2 (08:17→17:08)
[2017-06-10] MEDS: DOCUSATE SODIUM 100 MG CAPSULE PO SCH ×2 (08:17→17:06)
[2017-06-10] MEDS: DONEPEZIL 5 MG TABLET PO SCH (08:18)
[2017-06-10] MEDS: LISINOPRIL (5MG) 5 MG TABLET PO SCH ×2 (08:18→17:07)
[2017-06-10] MEDS: FLUOXETINE HCL 20 MG CAPSULE PO SCH (08:18)
[2017-06-10] MEDS: GABAPENTIN 300 MG CAPSULE PO SCH (08:33)
[2017-06-10 10:47] LABS: BASOPHILS % (AUTO) 0.7 % (0.0-2.0); EOSINOPHILS # (AUTO) 0.4 /CMM (0.0-0.7); EOSINOPHILS % (AUTO) 7.2 % (0.0-6.0); HEMATOCRIT 35 % (33-45); HEMOGLOBIN 11.3 g/dL (11.5-14.8); LYMPHOCYTES # (AUTO) 1.4 /CMM (0.8-4.8); LYMPHOCYTES % (AUTO) 24.4 % (20.0-44.0); MEAN CORPUSCULAR HEMOGLOBIN 27 PG (26.0-33.0); MEAN CORPUSCULAR HGB CONC 32 g/dl (31.0-36.0); MEAN CORPUSCULAR VOLUME 84 fL (82-100); MONOCYTES # (AUTO) 0.7 /CMM (0.1-1.30); MONOCYTES % (AUTO) 11.6 % (2.0-12.0); NEUTROPHILS # (AUTO) 3.2 /CMM (1.8-8.9); NEUTROPHILS % (AUTO) 56.1 % (43.0-81.0); PLATELET COUNT (AUTO) 261 /CMM (150-450); RDW COEFFICIENT OF VARIATION 13.4 (11.5-15.0); RED BLOOD CELL COUNT(AUTO) 4.18 MIL/uL (4.0-5.2); WHITE BLOOD COUNT (AUTO) 5.7 K/uL (4.3-11.0)
[2017-06-10 10:55] LABS: CALCIUM, SERUM 9.3 mg/dL (8.5-10.1); CARBON DIOXIDE 28 mmol/L (21-32); CHLORIDE 105 mmol/L (98-107); CREATININE 0.7 mg/dL (0.6-1.3); GLUCOSE 90 mg/dL (74-106); POTASSIUM 3.8 mmol/L (3.5-5.1); SODIUM SERUM 140 mmol/L (136-145); UREA NITROGEN, BLOOD 12 mg/dL (7-18)
[2017-06-10] MEDS: oxyCODONE/APAP (5/325 MG) 1 UDTAB TABLET PO SCH (11:54)
[2017-06-10 15:21] VITALS: BP 124/92
[2017-06-10 21:17] VITALS: BP 179/96
[2017-06-10] MEDS: TEMAZEPAM 7.5 MG CAPSULE PO PRN (22:24)
[2017-06-10 22:30] VITALS: BP 151/95
[2017-06-10] MEDS: ACETAMINOPHEN 325 MG TABLET PO PRN (23:07)
[2017-06-11 08:00] VITALS: BP 152/95
[2017-06-11] MEDS: FLUOXETINE HCL 20 MG CAPSULE PO SCH (08:07)
[2017-06-11] MEDS: GABAPENTIN 300 MG CAPSULE PO SCH (08:08)
[2017-06-11] MEDS: ASPIRIN 81 MG TAB.CHEW PO SCH (08:08)
[2017-06-11] MEDS: DOCUSATE SODIUM 100 MG CAPSULE PO SCH ×3 (08:08→16:56)
[2017-06-11] MEDS: LISINOPRIL (5MG) 5 MG TABLET PO SCH ×3 (08:08→16:56)
[2017-06-11] MEDS: MORPHINE SULFATE SR 15 MG TABLET.SA PO SCH ×2 (08:09→21:32)
[2017-06-11] MEDS: ATENOLOL 25 MG TABLET PO SCH ×3 (08:09→16:56)
[2017-06-11] MEDS: DONEPEZIL 5 MG TABLET PO SCH (08:09)
[2017-06-11] MEDS: oxyCODONE/APAP (5/325 MG) 1 UDTAB TABLET PO SCH (11:35)
[2017-06-11 16:35] VITALS: BP 150/90
--- NOTE | 2017-06-11 17:35 | NUR ---
GPS/RN PATIENT ADAMANTLY REFUSED 1700 MEDICATIONS X 3, EXPLAINED RISKS AND BENEFITS, CONTINUES TO REFUSE, WILL CONTINUE TO ENCOURAGE T COMPLY WITH MD REGIMEN.
[2017-06-11 20:36] VITALS: BP 148/90
[2017-06-11] MEDS: TEMAZEPAM 7.5 MG CAPSULE PO PRN (22:29)
[2017-06-12 08:00] VITALS: BP 133/83
[2017-06-12] MEDS: GABAPENTIN 300 MG CAPSULE PO SCH (08:32)
[2017-06-12] MEDS: LISINOPRIL (5MG) 5 MG TABLET PO SCH ×2 (08:32→17:57)
[2017-06-12] MEDS: FLUOXETINE HCL 20 MG CAPSULE PO SCH (08:33)
[2017-06-12] MEDS: ASPIRIN 81 MG TAB.CHEW PO SCH (08:33)
[2017-06-12] MEDS: DONEPEZIL 5 MG TABLET PO SCH (08:33)
[2017-06-12] MEDS: MORPHINE SULFATE SR 15 MG TABLET.SA PO SCH ×2 (08:33→21:09)
[2017-06-12] MEDS: DOCUSATE SODIUM 100 MG CAPSULE PO SCH ×2 (08:33→17:57)
[2017-06-12] MEDS: ATENOLOL 25 MG TABLET PO SCH ×2 (08:33→17:57)
[2017-06-12] MEDS: oxyCODONE/APAP (5/325 MG) 1 UDTAB TABLET PO SCH (12:08)
[2017-06-12 16:05] VITALS: BP 132/99
[2017-06-12 20:47] VITALS: BP 126/76
[2017-06-12] MEDS: TEMAZEPAM 7.5 MG CAPSULE PO PRN (22:20)
[2017-06-13 08:00] VITALS: BP 140/89
[2017-06-13] MEDS: LISINOPRIL (5MG) 5 MG TABLET PO SCH ×2 (08:49→18:19)
[2017-06-13] MEDS: GABAPENTIN 300 MG CAPSULE PO SCH (08:49)
[2017-06-13] MEDS: DOCUSATE SODIUM 100 MG CAPSULE PO SCH ×2 (08:49→18:15)
[2017-06-13] MEDS: DONEPEZIL 5 MG TABLET PO SCH (08:49)
[2017-06-13] MEDS: ATENOLOL 25 MG TABLET PO SCH ×2 (08:49→18:17)
[2017-06-13] MEDS: ASPIRIN 81 MG TAB.CHEW PO SCH (08:49)
[2017-06-13] MEDS: MORPHINE SULFATE SR 15 MG TABLET.SA PO SCH ×2 (08:50→21:22)
[2017-06-13] MEDS: FLUOXETINE HCL 20 MG CAPSULE PO SCH (08:50)
[2017-06-13] MEDS: oxyCODONE/APAP (5/325 MG) 1 UDTAB TABLET PO SCH (12:47)
[2017-06-13 16:40] VITALS: BP 132/76
[2017-06-13] MEDS: ACETAMINOPHEN 325 MG TABLET PO PRN (18:26)
--- NOTE | 2017-06-13 18:30 | NUR ---
DR. REEVES IN TO SEE PT.MED THIS LAUREN. FOR LEG PAIN WITH TLENOL 650 MG PO.
--- NOTE | 2017-06-13 19:30 | NUR ---
GPS RN NOTE, RECEIVED PATIENT AWAKE AND IN BED NO S/S OR COMPLAINTS OF PAIN AT THIS TIME. PATIENT IS DISPLAYING NO S/S OF APPARENT DISTRESS AT THIS TIME. PATIENT BREATHING IS UNLABORED WITH EQUAL RISE AND FALL OF THE CHEST. PATIENT IS ALERT AND ORIENTED X3 ON ROOM AIR WITH A SPOO2 94 %. PATIENT IS MED COMPLIANT, CALM, COOPERATIVE, DISORGANIZED, AND NEEDS REORIENTATION. PATIENT DENIES SUICIDE IDEATIONS AND HOMICIDAL IDEATIONS AT THIS TIME. PATIENT ASSISTED WITH TURNING AND REPOSITIONING Q2HR AND PRN FOR COMFORT AND CIRCULATION. PATIENT HAS NO NEEDS AT THIS TIME. PATIENT EDUCATED ON THE USE OF THE CALL GAR. PATIENT BED SIDE RAILS UP X 2 FOR SAFETY. PATIENT BED IS LOCKED AND LOW WILL CONTINUE TO MONITOR AND MAINTAIN SAFETY Q15 MIN WITH THE HELP OF STAFF.
[2017-06-13 20:06] VITALS: BP 131/74
--- NOTE | 2017-06-13 21:22 | NUR ---
GPS RN NOTE, PATIENT HAS A COMPLAINT OF GENERILZED BODY PAIN AT 6 OUT OF 10 ON THE PAIN SCALE AND IS REQUESTING MS COTIN AT THIS TIME. PATIENT VITAL SIGNS ARE STABLE. GAVE MS COTIN 15MG PO Q12HR ORDERED. WILL REASSESS PAIN AND I WILL CONTINUE TO MONITOR THIS PATIENT.
[2017-06-13] MEDS: TEMAZEPAM 7.5 MG CAPSULE PO PRN (22:10)
[2017-06-14] MEDS: ACETAMINOPHEN 325 MG TABLET PO PRN (04:11)
--- NOTE | 2017-06-14 04:11 | NUR ---
GPS RN NOTE, PATIENT HAS A COMPLAINT OF GENERALIZED BODY PAIN AT 3 OUT OF 10 ON THE PAIN SCALE AND IS REQUESTING TYLENOL AT THIS TIME. PATIENT VITAL SIGNS ARE STABLE. GAVE TYLENOL 650MG PO Q6HR PRN ORDERED. WILL REASSESS PAIN AND I WILL CONTINUE TO MONITOR THIS PATIENT.
[2017-06-14 08:00] VITALS: BP 141/92
[2017-06-14] MEDS: NITROGLYCERIN 0.4 MG/TAB BOTTLE SL PRN (10:23)
[2017-06-14] MEDS: LISINOPRIL (5MG) 5 MG TABLET PO SCH ×2 (10:23→17:00)
[2017-06-14] MEDS: Fluoxetine 10 mg capsule PO SCH (10:24)
[2017-06-14] MEDS: ATENOLOL 25 MG TABLET PO SCH ×2 (10:24→17:00)
[2017-06-14] MEDS: DONEPEZIL 5 MG TABLET PO SCH (10:24)
[2017-06-14] MEDS: ASPIRIN 81 MG TAB.CHEW PO SCH (10:25)
[2017-06-14] MEDS: GABAPENTIN 300 MG CAPSULE PO SCH (10:25)
[2017-06-14] MEDS: DOCUSATE SODIUM 100 MG CAPSULE PO SCH ×2 (10:25→17:26)
[2017-06-14] MEDS: MORPHINE SULFATE SR 15 MG TABLET.SA PO SCH ×2 (10:26→20:59)
--- NOTE | 2017-06-14 10:44 | NUR ---
MANISH REEVES WAS NOTIFIED THAT PT. IS COMPLAINING OF CHEST PAIN. V/S: BP 165/105 AND KS 83, ATENOLOL AND LISINOPRIL GIVEN AND NITROSTAT SL GIVEN BY PRIMARY NURSE AND GOT AN ORDER FOR TROPONIN AND EKG.
[2017-06-14] MEDS: oxyCODONE/APAP (5/325 MG) 1 UDTAB TABLET PO SCH (12:18)
[2017-06-14] MEDS: QUETIAPINE FUMARATE 25 MG TABLET PO SCH ×2 (14:04→17:00)
[2017-06-14 16:00] VITALS: BP 110/68
--- NOTE | 2017-06-14 17:00 | NUR ---
RN NON ADMIN NOTES PATIENT REFUSED TO TAKE DEPAKOTE. ENDORSE TO NIGHT RN. Addendum: 06/14/17 at 1928 by JODIE WILLETT RN RN NON ADMIN NOTES PATIENT REFUSED TO TAKE SEROQUEL. ENDORSE TO NIGHT RN.
--- NOTE | 2017-06-14 17:00 | NUR ---
RN NOTES PATIENT IS BP 110/68. HELD BP MEDS. PATEINT REQUESTING FOR SEROQUEL TO BE GIVEN DURING THE SAME TIME OF PAIN MEDICATIONS. WILL ENDORSE.
[2017-06-14 20:00] VITALS: BP 126/76
[2017-06-15] MEDS: NITROGLYCERIN 0.4 MG/TAB BOTTLE SL PRN (00:02)
--- NOTE | 2017-06-15 00:02 | NUR ---
PT C/O CHEST PAIN, 02/12, RADIATING TO HER LEFT SIDE OF THE BODY. PER PT SHE'S HAVING THE PAIN ONLY WHEN SHE'S MOVING. NITROGLYCERIN GIVEN ORDERED. BP : 154/78, HR : 75. 02 SAT : 97 %. WILL MONITOR PT CLOSELY. CHARGE NURSE NAZ BIRD.
--- NOTE | 2017-06-15 00:06 | NUR ---
PT DENIES OF CHEST PAIN OR DISCOMFORT AT THIS TIME, PT VERBALIZED THAT HER CHEST PAIN WAS RELIEVED AFTER SHE TOOK NITROGLYCERIN, PT'S BP AT THIS TIME: 137/89, HR : 63 , 02 SAT IS 96 %. PT'S TROPONIN @ 2300: 0.017, CHARGE NURSE NAZ BIRD.
[2017-06-15] MEDS: ACETAMINOPHEN 325 MG TABLET PO PRN ×2 (00:16→18:44)
[2017-06-15] MEDS: TEMAZEPAM 7.5 MG CAPSULE PO PRN ×2 (01:26→22:04)
--- NOTE | 2017-06-15 01:26 | NUR ---
PT C/O INABILITY TO SLEEP, REQUESTING FOR SLEEPING PILL, RESTORIL GIVEN ORDERED. BP : 133/76, HR : 60. 02 SAT : 96 %. WILL CONT TO MONITOR.
[2017-06-15 08:00] VITALS: BP 159/90
[2017-06-15] MEDS: ASPIRIN 81 MG TAB.CHEW PO SCH (08:16)
[2017-06-15] MEDS: DOCUSATE SODIUM 100 MG CAPSULE PO SCH ×2 (08:16→17:05)
[2017-06-15] MEDS: DONEPEZIL 5 MG TABLET PO SCH (08:16)
[2017-06-15] MEDS: MORPHINE SULFATE SR 15 MG TABLET.SA PO SCH ×2 (08:16→21:10)
[2017-06-15] MEDS: GABAPENTIN 300 MG CAPSULE PO SCH (08:17)
[2017-06-15] MEDS: ATENOLOL 25 MG TABLET PO SCH ×2 (08:17→17:06)
[2017-06-15] MEDS: LISINOPRIL (5MG) 5 MG TABLET PO SCH ×2 (08:17→17:06)
[2017-06-15] MEDS: QUETIAPINE FUMARATE 25 MG TABLET PO SCH ×2 (08:18→17:05)
[2017-06-15] MEDS: oxyCODONE/APAP (5/325 MG) 1 UDTAB TABLET PO SCH (12:06)
[2017-06-15] MEDS: Fluoxetine 10 mg capsule PO SCH (12:06)
[2017-06-15 16:24] VITALS: BP 128/81
[2017-06-15 20:00] VITALS: BP 124/88
--- NOTE | 2017-06-15 22:04 | NUR ---
GPS RN NOTES pt c/o inability to sleep requesting for Restoril given as ordered. bp : 124/88, hr : 67, o2 sat is 96 % . will cont to monitor.
[2017-06-16] MEDS: NITROGLYCERIN 0.4 MG/TAB BOTTLE SL PRN ×3 (06:37→07:05)
--- NOTE | 2017-06-16 06:37 | NUR ---
pt c/o chest pain radiating on left side of her body , chest pain scale: 7/10, bp : 162/89, hr:70, 02 sat : 98%. nitroglycerin given as ordered. monitoring pt closely.
--- NOTE | 2017-06-16 06:42 | NUR ---
pt verbalized that her chest pain was relieved with nitroglycerin and that she doesn't need another dose of nitro. charge nurse margo orozco. bp : 149/83, hr : 68, o2 sat : 96%. will cont to monitor.
[2017-06-16] MEDS: ACETAMINOPHEN 325 MG TABLET PO PRN (06:44)
--- NOTE | 2017-06-16 06:44 | NUR ---
pt c/o head ache, 10/13, requested for tylenol given as ordered. will cont to monitor.
--- NOTE | 2017-06-16 06:56 | NUR ---
pt c/o chest pain, radiating 01/13. bp : 169/90, hr : 65, 02 sat : 97 % . nitroglycerin given as ordered. [facility] charge nurse aware.
--- NOTE | 2017-06-16 07:01 | NUR ---
placed a call to ever anguiano.
--- NOTE | 2017-06-16 07:02 | NUR ---
placed a call to lab , informed them regarding troponin order stat.
--- NOTE | 2017-06-16 07:05 | NUR ---
pt stated that she's still having chest pain, non radiating, requested for nitroglycerin, given as ordered. bp : 159/69, hr : 61, 02 sat : 97 %.
--- NOTE | 2017-06-16 07:10 | NUR ---
pt denies any chest pain at this time, per pt her chest pain was relieved. endorsed to day shift nurse vilma accordingly .
[2017-06-16 08:00] VITALS: BP 128/66
[2017-06-16] MEDS: DOCUSATE SODIUM 100 MG CAPSULE PO SCH (09:12)
[2017-06-16] MEDS: GABAPENTIN 300 MG CAPSULE PO SCH (09:12)
[2017-06-16] MEDS: QUETIAPINE FUMARATE 25 MG TABLET PO SCH (09:12)
[2017-06-16] MEDS: DONEPEZIL 5 MG TABLET PO SCH (09:12)
[2017-06-16] MEDS: ASPIRIN 81 MG TAB.CHEW PO SCH (09:12)
[2017-06-16] MEDS: MORPHINE SULFATE SR 15 MG TABLET.SA PO SCH (09:13)
[2017-06-16] MEDS: Fluoxetine 10 mg capsule PO SCH (09:13)
[2017-06-16 09:14] VITALS: BP 128/66
[2017-06-16] MEDS: ATENOLOL 25 MG TABLET PO SCH (09:14)
[2017-06-16] MEDS: LISINOPRIL (5MG) 5 MG TABLET PO SCH (09:14)
--- NOTE | 2017-06-16 09:15 | NUR ---
GPS/RN PT COMPLIANT WITH MEDS NO C/O CHEST PAIN REPORTED. PT C/O PAIN IN THE LEGS ONLY
--- NOTE | 2017-06-16 09:32 | NUR ---
DR. COOMBS GAVE AN ORDER TO D/C HOLD AND D/C HOME. TO FOLLOW UP WITH PSYCH AND MEDICAL DOCTORS. Addendum: 06/16/17 at 1102 by ARA ALONZO RN DR. COOMBS CHANGED THE ORDER TO D/C PT. TO TELEMETRY AND D/C HOLD AND TO CONTINUE SAME MEDS.
--- NOTE | 2017-06-16 11:03 | NUR ---
SPOKE TO MANISH REEVES AND ORDERED TO TRANSFER PT. TO TELEMETRY FOR CHEST PAIN. DR. COOMBS MADE AWARE AND ORDERED TO D/C PT. TO TELEMETRY AND D/C HOLD AND TO CONTINUE SAME MEDS.
--- NOTE | 2017-06-16 11:29 | NUR ---
GRAND DAUGHTER CARLOS IS AWARE FOR THE TRANSFER TO TELEMETRY.
--- NOTE | 2017-06-16 11:45 | NUR ---
GPS/RN PT TO BE D/C TO 326-1 TELE FOR CHEST PAIN. NO SI OR HI AT THE TIME OF D/C. DAUGHTER AWARE OF TRANSFER. PT REFUSED TO SIGN EXIT CARE AND D/C PAPERWORK.PT AMBULATORY VSS NO DISTRESS. REPORT TO BE GIVEN TO ALISHA/Aung
[2017-06-16] MEDS ORDERED: ASPI81TA2 PO (12:38)
[2017-06-16] MEDS ORDERED: TEMA7.5C12 PO (12:38)
[2017-06-16] MEDS ORDERED: MAGN400O6 PO (12:38)
[2017-06-16] MEDS ORDERED: LORA0.5T PO (12:38)
[2017-06-16] MEDS ORDERED: FLUO10CA26 PO (12:38)
[2017-06-16] MEDS ORDERED: ACET-868 PO (12:38)
[2017-06-16] MEDS ORDERED: MORP15TA71 PO (12:38)
[2017-06-16] MEDS ORDERED: MAG30ORA PO (12:38)
[2017-06-16] MEDS ORDERED: QUET25TA PO (12:38)
[2017-06-16] MEDS ORDERED: DOCU-25 PO (12:38)
--- NOTE | 2017-06-18 08:30 | NUR ---
Discharge Note Please note that, over the weekend, patient was discharged to the medical floor due to chest pain. Patients granddaughter, Myriam [phone] is aware of the discharge from GPS unit to medical floor. Patient will follow up with her loader machine, Dr. Brown [address] [facility] [address], [place] [address] [phone] once she is medically cleared. Patient does not see a psychaitrist but was given a referral to [facility] [address] [place] [address], . Patient was also provided referrals to free therapeutic services at [facility] [address] [place], [place] [phone].
== END 2017-06-16 11:45 | disposition short-term general hospital (02) | DRG 885 ==
LOC: GPS 14:52
PROVIDERS: ADMIT Psychiatry & Neurology Psychiatry; ATTEND Psychiatry & Neurology Psychiatry
DX: F33.2 Major depressive disorder, recurrent severe without psychotic features (principal); I11.0 Hypertensive heart disease with heart failure; M32.9 Systemic lupus erythematosus, unspecified; G62.9 Polyneuropathy, unspecified; I50.30 Unspecified diastolic (congestive) heart failure; R45.851 Suicidal ideations; F03.90 Unspecified dementia, unspecified severity, without behavioral disturbance, psychotic disturbance, mood disturbance, and anxiety; Z73.6 Limitation of activities due to disability; M79.7 Fibromyalgia; G89.4 Chronic pain syndrome; F41.9 Anxiety disorder, unspecified; E78.5 Hyperlipidemia, unspecified; Z79.899 Other long term (current) drug therapy
CPT/HCPCS: 36415; 80048-TC; 84484-TC; 85025-TC; 87081-TC

== ENCOUNTER 2017-06-16 12:09 | Inpatient (IN) | payer MEDICARE, MEDICAID ==
[~2017-06-16] VITALS: Ht 160 cm; Wt 65.8 kg
[2017-06-16 12:00] VITALS: BP 164/91
[2017-06-16] MEDS ORDERED: ACET-868 PO (12:38)
[2017-06-16] MEDS ORDERED: FLUO10CA26 PO (12:38)
[2017-06-16] MEDS ORDERED: TEMA7.5C12 PO (12:38)
[2017-06-16] MEDS ORDERED: MAGN400O6 PO (12:38)
[2017-06-16] MEDS ORDERED: QUET25TA PO (12:38)
[2017-06-16] MEDS ORDERED: MAG30ORA PO (12:38)
[2017-06-16] MEDS ORDERED: ASPI81TA2 PO (12:38)
[2017-06-16] MEDS ORDERED: MORP15TA71 PO (12:38)
[2017-06-16] MEDS ORDERED: DOCU-25 PO (12:38)
[2017-06-16] MEDS ORDERED: LORA0.5T PO (12:38)
[2017-06-16 12:45] VITALS: BP 164/91
--- NOTE | 2017-06-16 13:00 | NUR ---
RN NOTES: PATIENT ADMITTED TO UNIT FROM [facility] PER DR LYNN ORDERS. PATIENT ALERT ORIENTED X4. PATIENT STABLE. NONLABORED BREATHING NOTED ON ROOM AIR. PATIENT DENIES CHEST PAIN. TELE MONITORING INDICATES SINUS BRADYCARDIA. BED IN LOWEST LOCKED POSITION. CALL LIGHT WITHIN REACH. WILL CONTINUE TO MONITOR
[2017-06-16] MEDS ORDERED: TEMAZEPAM 7.5 MG CAPSULE PO PRN (13:30)
[2017-06-16] MEDS ORDERED: NITROGLYCERIN 0.4 MG/TAB BOTTLE SL PRN (13:30)
[2017-06-16] MEDS ORDERED: ONDANSETRON HCL/PF 4 MG/2 ML VIAL IVP PRN (13:30)
[2017-06-16] MEDS ORDERED: Z GUARD REMEDY 2 OZ OINT TP PRN (13:30)
[2017-06-16] MEDS ORDERED: MAGNESIUM HYDROXIDE 30 ML UDC PO PRN (13:30)
[2017-06-16] MEDS ORDERED: MAG HYDROX/AL HYDROX/SIMETH 30 ML UDC PO PRN (13:30)
--- NOTE | 2017-06-16 14:00 | NUR ---
RN NOTES: PATIENT REFUSED HAVING VITAL SIGNS REASSESSED. PATIENT REFUSING IV PERIPHERAL ACCESS FOR EMERGENCY. PATIENT STABLE
[2017-06-16] MEDS: oxyCODONE/APAP (5/325 MG) 1 UDTAB TABLET PO SCH (14:01)
[2017-06-16 16:00] VITALS: BP 153/93
[2017-06-16] MEDS: ACETAMINOPHEN 325 MG TABLET PO PRN (16:08)
[2017-06-16] MEDS: LISINOPRIL (5MG) 5 MG TABLET PO SCH (16:39)
[2017-06-16] MEDS: DOCUSATE SODIUM 100 MG CAPSULE PO SCH (16:39)
[2017-06-16] MEDS: QUETIAPINE FUMARATE 25 MG TABLET PO SCH (16:40)
[2017-06-16] MEDS: ATENOLOL 25 MG TABLET PO SCH (16:41)
--- NOTE | 2017-06-16 18:32 | NUR ---
RN CLOSING NOTES: PATIENT ADMITTED TO UNIT FROM GPS PER DR LYNN ORDERS. PATIENT ALERT ORIENTED X4. PATIENT STABLE. NONLABORED BREATHING NOTED ON ROOM AIR. PATIENT DENIES CHEST PAIN. TELE MONITORING INDICATES SINUS RHYTHEM. PATIENT REFUSED SKIN ASSESSMENT. ACCORDING TO PREVIOUS RECORD, SKIN IS INTACT. PATIENT REFUSING IV ACCESS. BENEFITS AND RISKS EXPLAINED. BED IN LOWEST LOCKED POSITION. CALL LIGHT WITHIN REACH. DURING SHIFT, PATIENT ENCOURAGED TO TURN AND REPOSITION EVERY 2 HOURS. SKIN KEPT CLEAN AND DRY. WILL ENDORSE TO NEXT SHIFT
--- NOTE | 2017-06-16 19:10 | NUR ---
RN NOTES: PATIENT OFFERED PERIPHERAL IV ACCESS FOR EMERGENCY AGAIN. BENEFITS AND RISKS EXPLAINED AGAIN. PATIENT REMOVED ARM QUICKLY DURING INSERTION STATING " I DONT WANT IT RIGHT NOW. I DONT NEED IT." NEXT SHIFT RN AWARE
--- NOTE | 2017-06-16 19:15 | NUR ---
BARREL ROLLER OPERATOR OPENING NOTES: RECEIVED PT AND IS AWAKE AND SITTING UP IN BED COMFORTABLY. NO S/S OF DISTRESS OR SOB NOTED. PT IS A/OX4. PT HAS NO IV NOTED AT THIS TIME. WILL ATTEMPT TO START AN IV ON PATIENT. PT ON TELE MONITOR. PT REFUSING SKIN ASSESSMENT AT THIS TIME. CALL LIGHT WITHIN PT'S REACH. BED KEPT IN LOW, LOCKED POSITION, AND SIDE RAILS X 2 UP. BED ALARM ACTIVATED. WILL CONTINUE TO MONITOR PT.
[2017-06-16 20:00] VITALS: BP_SYST 123; BP_SYST 140; BP_SYST 156; BP_DIAS 66; BP_DIAS 71; BP_DIAS 88
[2017-06-16] MEDS: MORPHINE SULFATE SR 15 MG TABLET.SA PO PRN (20:59)
--- NOTE | 2017-06-16 21:01 | NUR ---
REGISTERED NURSE BEHAVIORAL HEALTH NOTES: PT IS COMPLAINING OF 8/10 GENERALIZED PAIN . PT RECEIVED MS CONTIN 15MG PO. PT REFUSING TO HAVE IV STARTED AT THIS TIME. SHE SAID TO TRY AT ANOTHER TIME WHEN SHE IS NOT IN PAIN. WILL CONTINUE TO MONITOR PT.
[2017-06-16] MEDS ORDERED: IV PREMIX NS +20MEQ KCL 1 L IV ONE (21:03)
--- NOTE | 2017-06-16 21:52 | NUR ---
APPLIANCE PAINTER AND REFINISHER NOTES: PT STILL REFUSING TO HAVE IV INSERTED. PT SAID THAT SHE WAS SUPPOSED TO GET DISCHARGED TODAY BUT IT DIDN'T HAPPEN. SHE SAID SHE KNOWS SHE WILL GET DISCHARGED TOMORROW AND DOES NOT WANT TO HAVE IV INSERTED. EXPLAINED RISKS AND BENEFITS OF HAVING AN IV. WILL TRY AGAIN AT ANOTHER TIME.
[2017-06-16] MEDS: ZOLPIDEM TARTRATE 5 MG TABLET PO PRN (22:01)
--- NOTE | 2017-06-16 22:01 | NUR ---
EXPORT FREIGHT SPECIALIST NOTES: PT REQUESTING FOR SLEEPING PILL. VITAL SIGNS 120/72 HR 60. PT WAS ADMINISTERED AMBIEN 5MG PO. WILL CONTINUE TO MONITOR PT.
[2017-06-17] VITALS: BP 156/88
[2017-06-17 04:00] VITALS: BP 155/88
[2017-06-17] MEDS: HYDROCODONE/APAP 5/325MG 1 EACH TABLET PO PRN ×2 (05:10→16:42)
--- NOTE | 2017-06-17 05:11 | NUR ---
SUPERVISOR FRAME ASSEMBLY NOTES: PT COMPLAINING OF 7/10 BILATERAL LEG PAIN. PT'S VITALS WERE 155/58 HR 62. WILL CONTINUE TO MONITOR PT.
[2017-06-17 07:14] LABS: BASOPHILS # (AUTO) 0.1 /CMM (0.0-0.2); BASOPHILS % (AUTO) 1.6 % (0.0-2.0); EOSINOPHILS # (AUTO) 0.5 /CMM (0.0-0.7); EOSINOPHILS % (AUTO) 10.4 % (0.0-6.0); HEMATOCRIT 36 % (33-45); HEMOGLOBIN 11.5 g/dL (11.5-14.8); LYMPHOCYTES # (AUTO) 1.8 /CMM (0.8-4.8); MEAN CORPUSCULAR HEMOGLOBIN 27 PG (26.0-33.0); MEAN CORPUSCULAR HGB CONC 32 g/dl (31.0-36.0); MEAN CORPUSCULAR VOLUME 84 fL (82-100); MONOCYTES # (AUTO) 0.5 /CMM (0.1-1.30); NEUTROPHILS # (AUTO) 2.3 /CMM (1.8-8.9); PLATELET COUNT (AUTO) 276 /CMM (150-450); RDW COEFFICIENT OF VARIATION 13.6 (11.5-15.0); RED BLOOD CELL COUNT(AUTO) 4.24 MIL/uL (4.0-5.2); WHITE BLOOD COUNT (AUTO) 5.2 K/uL (4.3-11.0)
[2017-06-17 07:20] LABS: CHOLESTEROL 142 mg/dL (<200); HDL CHOLESTEROL 64 mg/dL (40-60); LDL 77 mg/dL (0-99); TRIGLYCERIDES 35 mg/dL (30-150)
[2017-06-17 07:25] LABS: CALCIUM, SERUM 8.9 mg/dL (8.5-10.1); CARBON DIOXIDE 28 mmol/L (21-32); CHLORIDE 104 mmol/L (98-107); CREATININE 0.7 mg/dL (0.6-1.3); GLUCOSE 83 mg/dL (74-106); PHOSPHORUS 3.5 mg/dL (2.5-4.9); POTASSIUM 3.9 mmol/L (3.5-5.1); SODIUM SERUM 140 mmol/L (136-145); UREA NITROGEN, BLOOD 10 mg/dL (7-18)
--- NOTE | 2017-06-17 07:25 | NUR ---
COUNTER MOLDER CLOSING NOTES: ALL NEEDS WERE ATTENDED AND ANTICIPATED FOR. PT IS AWAKE AND SITTING UP IN BED COMFORTABLY. NO S/S OF DISTRESS OR SOB NOTED. PT IS A/OX4. PT HAS NO IV NOTED AT THIS TIME. OFFERED ANOTHER IV BUT PT STATES THAT SHE IS SUPPOSED TO BE DISCHARGED TODAY. PT ON TELE MONITOR. PT IS SR 70. CALL LIGHT WITHIN PT'S REACH. BED KEPT IN LOW, LOCKED POSITION, AND SIDE RAILS X 2 UP. ENDORSED TO AM NURSE FOR DIYA.
--- NOTE | 2017-06-17 07:50 | NUR ---
PIGMENT MIXER OPENING NOTE PATIENT IS ALERT AND ORIENTED x3-4. NO PAIN AT THIS TIME. NO SOB OR DISTRESS NOTED. CALL LIGHT WITHIN REACH. SAFETY MEASURES IMPLEMENTED. ABLE TO COMMUNICATE NEEDS. TELE MONITOR ON AT THIS TIME. SR-69. AMBULATORY. NO IV ACCESS PATIENT IS REFUSING AT THIS TIME. CARDIAC DIET. AWAITING AM LAB RESULTS. ON ROOM AIR TOLERATING WELL AT THIS TIME. WILL CONTINUE TO MONITOR
[2017-06-17 08:00] VITALS: BP 160/83
[2017-06-17] MEDS: DONEPEZIL 5 MG TABLET PO SCH (08:10)
[2017-06-17] MEDS: ASPIRIN 81 MG TAB.CHEW PO SCH (08:10)
[2017-06-17] MEDS: DOCUSATE SODIUM 100 MG CAPSULE PO SCH ×2 (08:10→16:41)
[2017-06-17] MEDS: GABAPENTIN 300 MG CAPSULE PO SCH (08:10)
[2017-06-17] MEDS: Fluoxetine 10 mg capsule PO SCH (08:10)
[2017-06-17] MEDS: QUETIAPINE FUMARATE 25 MG TABLET PO SCH ×2 (08:11→16:42)
[2017-06-17] MEDS: ATENOLOL 25 MG TABLET PO SCH ×2 (08:11→16:43)
[2017-06-17] MEDS: LISINOPRIL (5MG) 5 MG TABLET PO SCH ×3 (08:12→16:42)
[2017-06-17] MEDS: MORPHINE SULFATE SR 15 MG TABLET.SA PO PRN ×3 (09:14→23:35)
[2017-06-17] MEDS: oxyCODONE/APAP (5/325 MG) 1 UDTAB TABLET PO SCH (12:14)
[2017-06-17 16:00] VITALS: BP 155/89
--- NOTE | 2017-06-17 18:51 | NUR ---
MS RN CLOSING NOTE PATIENT IS ALERT AND ORIENTEDx3-4. NO PAIN AT THIS TIME. NO SOB OR DISTRESS NOTED. CALL LIGHT WITHIN REACH AT ALL TIMES. SAFETY MEASURES IMPLEMENTED. ABLE TO COMMUNICATE NEEDS. ALL DUE MEDICATIONS GIVEN ORDERED. ALL NURSING CARE NEEDS ATTENDED TO. AMBULATORY. SKIN INTACT. NO IV ACCESS, PATIENT REFUSES. LABS IN AM. POSSIBLE DISCHARGE TOMORROW. WILL ENDORSE TO ONLINE RETAILER NURSE FOR DIYA
[2017-06-17 20:00] VITALS: BP 129/74
[2017-06-17] MEDS: LORAZEPAM 0.5 MG TABLET PO PRN ×5 (21:45→22:13)
[2017-06-17] MEDS ORDERED: LORAZEPAM 0.5 MG TABLET PO PRN (22:00)
[2017-06-17] MEDS: ZOLPIDEM TARTRATE 5 MG TABLET PO PRN ×2 (23:27→23:29)
[2017-06-18] MEDS: HYDROCODONE/APAP 5/325MG 1 EACH TABLET PO PRN ×2 (04:32→08:31)
[2017-06-18] MEDS: ACETAMINOPHEN 325 MG TABLET PO PRN (06:26)
--- NOTE | 2017-06-18 07:30 | NUR ---
m/s plastic battery assembler: initial assessment received pt in bed awake, a/ox3. sitter at bedside. no c/o pain or any discomfort at this time. call light within reach. for d'c planning today. will continue to monitor.
[2017-06-18 07:36] LABS: BASOPHILS % (AUTO) 0.7 % (0.0-2.0); EOSINOPHILS # (AUTO) 0.4 /CMM (0.0-0.7); EOSINOPHILS % (AUTO) 6.6 % (0.0-6.0); HEMATOCRIT 33 % (33-45); HEMOGLOBIN 10.7 g/dL (11.5-14.8); LYMPHOCYTES # (AUTO) 1.6 /CMM (0.8-4.8); LYMPHOCYTES % (AUTO) 28.9 % (20.0-44.0); MEAN CORPUSCULAR HEMOGLOBIN 27 PG (26.0-33.0); MEAN CORPUSCULAR HGB CONC 33 g/dl (31.0-36.0); MEAN CORPUSCULAR VOLUME 83 fL (82-100); MONOCYTES # (AUTO) 0.5 /CMM (0.1-1.30); MONOCYTES % (AUTO) 9.4 % (2.0-12.0); NEUTROPHILS % (AUTO) 54.4 % (43.0-81.0); PLATELET COUNT (AUTO) 258 /CMM (150-450); RED BLOOD CELL COUNT(AUTO) 3.96 MIL/uL (4.0-5.2); WHITE BLOOD COUNT (AUTO) 5.6 K/uL (4.3-11.0)
[2017-06-18 07:59] LABS: CALCIUM, SERUM 8.8 mg/dL (8.5-10.1); CARBON DIOXIDE 28 mmol/L (21-32); CHLORIDE 107 mmol/L (98-107); CREATININE 0.8 mg/dL (0.6-1.3); GLUCOSE 87 mg/dL (74-106); POTASSIUM 4.2 mmol/L (3.5-5.1); SODIUM SERUM 140 mmol/L (136-145); UREA NITROGEN, BLOOD 10 mg/dL (7-18)
[2017-06-18 08:00] VITALS: BP 137/86
[2017-06-18] MEDS: Fluoxetine 10 mg capsule PO SCH (08:30)
[2017-06-18] MEDS: GABAPENTIN 300 MG CAPSULE PO SCH (08:30)
[2017-06-18] MEDS: ASPIRIN 81 MG TAB.CHEW PO SCH (08:31)
[2017-06-18] MEDS: DOCUSATE SODIUM 100 MG CAPSULE PO SCH ×2 (08:31→17:05)
[2017-06-18] MEDS: QUETIAPINE FUMARATE 25 MG TABLET PO SCH ×2 (08:31→17:05)
[2017-06-18] MEDS: ATENOLOL 25 MG TABLET PO SCH ×2 (08:31→17:05)
[2017-06-18] MEDS: DONEPEZIL 5 MG TABLET PO SCH (08:31)
--- NOTE | 2017-06-18 08:31 | NUR ---
m/s ice cream maker: notes c/o / generalized discomfort, medicated with norco 1 tab po as ordered. will continue to monitor. sitter at bedside.
[2017-06-18] MEDS: LISINOPRIL (5MG) 5 MG TABLET PO SCH ×2 (08:32→17:05)
--- NOTE | 2017-06-18 09:31 | NUR ---
m/s roving marker: notes pt resting comfortable in bed with sitter at bedside. instructed to call for assistance. will monitor.
[2017-06-18] MEDS: oxyCODONE/APAP (5/325 MG) 1 UDTAB TABLET PO SCH (12:14)
--- NOTE | 2017-06-18 12:30 | NUR ---
m/s uppers edge burnisher: md visit seen and examined by dr. navarrete with order to d'c home and f/u psych as outpatient. pt made aware.
[2017-06-18] MEDS: MORPHINE SULFATE SR 15 MG TABLET.SA PO PRN (13:52)
--- NOTE | 2017-06-18 15:00 | NUR ---
m/s hardware press operator: notes chelle (granddaughter/dpoa) notified and made aware re: d'c home with her today. chelle requesting gps discharge summary. informed her that there is a protocol to f/u. informed her that she it's a different admission and she needs to sign a requisition form to release gps records from medical record, but chelle insisted getting all files before she leaves the hospital. cn aware and referred to britni (manager social media, gps).
--- NOTE | 2017-06-18 15:30 | NUR ---
m/s manager business systems: notes f/u made to britni (secondary social studies teacher) and provided referral forms. called chelle and f/u with her re: apple picking supervisor, but she is still insisting to get all records from gps, stated, "you can't seem to understand me, i was promise by your secondary social studies teacher from gps unit that i can get all the discharge summary from over there." once again, informed her that there is a protocol to follow and she needs a requisition form sign to release authorization of medical information, but still insisted of getting them. referred once more to britni (secondary social studies teacher).
--- NOTE | 2017-06-18 16:45 | NUR ---
m/s install and repair technician: notes per britni (social worker health services), granddaughter on the way here to pick pt up.
[2017-06-18 17:05] VITALS: BP 131/76
--- NOTE | 2017-06-18 17:40 | NUR ---
m/s machining engineer: d'c instructions discharged instructions with prescriptions given to chelle (grddtr) and verbalized understanding. also signed a release form and faxed to medical records. all copies provided to chelle including d'c papers, prescriptions, and authorization release medical information. pt has no iv access. pt stable for discharge. no c/o pain or any discomfort.
--- NOTE | 2017-06-18 18:15 | NUR ---
m/s chief quality officer: discharged discharged home with granddaughter via private car with all valuables/belongings/home meds and d'c papers in stable condition.
== END 2017-06-18 18:15 | disposition home or self-care (01) | DRG 313 ==
LOC: TELE 12:09 → MED 06-17 10:54
PROVIDERS: ADMIT Nurse Practitioner Acute Care; ATTEND Internal Medicine
DX: R07.89 Other chest pain (principal); G62.9 Polyneuropathy, unspecified; I11.0 Hypertensive heart disease with heart failure; I50.32 Chronic diastolic (congestive) heart failure; F29 Unspecified psychosis not due to a substance or known physiological condition; Z73.6 Limitation of activities due to disability; G89.4 Chronic pain syndrome; M79.7 Fibromyalgia; M32.9 Systemic lupus erythematosus, unspecified; F03.90 Unspecified dementia, unspecified severity, without behavioral disturbance, psychotic disturbance, mood disturbance, and anxiety; E78.5 Hyperlipidemia, unspecified; F32.9 Major depressive disorder, single episode, unspecified; F41.9 Anxiety disorder, unspecified; Z79.82 Long term (current) use of aspirin; Z79.899 Other long term (current) drug therapy
CPT/HCPCS: 36415; 80048-TC; 80061-TC; 83735-TC; 84100-TC; 84484-TC; 85025-TC; 87081-TC; J3490; Z7610

== ENCOUNTER 2017-09-08 00:25 | Inpatient (IN) | payer MEDICARE, MEDICAID ==
[2017-09-07 01:00] VITALS: BP 150/94
[~2017-09-08] VITALS: Ht 160 cm; Wt 57.6 kg
[~2017-09-08 00:25] MED LIST changes: -AMLO2.5T PO; -BUPR100T5 PO; -BUPR1PAT3 TD; -FOLI1TAB16 PO; -ZOLP5TAB8 PO
[2017-09-08] MEDS ORDERED: MAGNESIUM HYDROXIDE 30 ML UDC PO PRN (01:00)
[2017-09-08] MEDS ORDERED: LORAZEPAM 0.5 MG TABLET PO PRN (01:00)
[2017-09-08] MEDS ORDERED: MAG HYDROX/AL HYDROX/SIMETH 30 ML UDC PO PRN (01:00)
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
[2017-09-08] MEDS: TEMAZEPAM 7.5 MG CAPSULE PO PRN (02:53)
[2017-09-08 03:15] VITALS: BP 150/94
--- NOTE | 2017-09-08 06:10 | NUR ---
NOTIFIED DR. MARINO TO RECONCILE MEDICATION
--- NOTE | 2017-09-08 06:54 | NUR ---
GPS RN NOTE: LEFT MESSAGE TO THE GRAND DAUGHTER CARLOS. WILL CONTINUE TO FOLLOW UP
[2017-09-08] MEDS: ACETAMINOPHEN 325 MG TABLET PO PRN ×2 (06:59→17:14)
[2017-09-08] MEDS ORDERED: FOLI1TAB16 PO (07:33)
[2017-09-08] MEDS ORDERED: BUPR100T5 PO (07:33)
[2017-09-08] MEDS ORDERED: ZOLP5TAB8 PO (07:33)
[2017-09-08] MEDS ORDERED: AMLO2.5T PO (07:33)
[2017-09-08] MEDS ORDERED: BUPR1PAT3 TD (07:36)
[2017-09-08 08:28] VITALS: BP 145/78
--- NOTE | 2017-09-08 10:20 | NUR ---
GPS/RN-NOTES DR. BESSIE KERNS SEEN THE PATIENT WITH VERBAL ORDER OF NORCO 5/325MG P.O Q6 HRS PRN FOR SEVERE PAIN. NOTED AND CARRIED OUT. ALSO PER MD HE WILL RECONCILE PATIENT'S MEDICATION.
[2017-09-08] MEDS: QUETIAPINE FUMARATE 25 MG TABLET PO SCH ×2 (10:31→17:14)
[2017-09-08] MEDS: BUPROPION XL 150 MG TAB.ER.24 PO SCH (10:31)
[2017-09-08] MEDS: FLUOXETINE HCL 20 MG CAPSULE PO SCH (10:31)
[2017-09-08] MEDS: HYDROCODONE/APAP 5/325MG 1 EACH TABLET PO PRN ×2 (11:01→18:12)
--- NOTE | 2017-09-08 11:05 | NUR ---
GPS/RN-NOTES PATIENT C/O 02/12 GENERALIZED BODY PAIN AND REQUESTING FOR PAIN MEDICATIONS. NORCO 5/325MG P.O GIVEN PRN ORDER. WILL CONT. MONITORING FOR SAFETY.
[2017-09-08] MEDS ORDERED: NITROGLYCERIN 0.4 MG/TAB BOTTLE SL PRN (12:30)
[2017-09-08 16:00] VITALS: BP 123/84
[2017-09-08] MEDS: ATENOLOL 25 MG TABLET PO SCH (17:14)
--- NOTE | 2017-09-08 17:24 | NUR ---
GPS/RN-NOTES PATIENT C/O BOTH SHOULDER PAIN, OFFERED TYLENOL AND AGREES. TYLENOL 650MG P.O GIVEN PRN ORDER. WILL CONT. MONITORING FOR SAFETY.
--- NOTE | 2017-09-08 18:14 | NUR ---
GPS/RN-NOTES PATIENT STILL C/O 04/15 BOTH SHOULDER PAIN AND REQUESTING FOR PAIN MEDICATIONS. NORCO 5/325MG P.O GIVEN PRN ORDER. WILL CONT. MONITORING FOR SAFETY.
[2017-09-08 20:00] VITALS: BP 109/64
[2017-09-09] MEDS: TEMAZEPAM 7.5 MG CAPSULE PO PRN ×2 (02:06→22:17)
[2017-09-09] MEDS: HYDROCODONE/APAP 5/325MG 1 EACH TABLET PO PRN ×4 (02:26→21:18)
[2017-09-09 07:32] LABS: BASOPHILS % (AUTO) 0.8 % (0.0-2.0); EOSINOPHILS # (AUTO) 0.4 /CMM (0.0-0.7); HEMATOCRIT 33 % (33-45); HEMOGLOBIN 10.8 g/dL (11.5-14.8); LYMPHOCYTES % (AUTO) 34.8 % (20.0-44.0); MEAN CORPUSCULAR HEMOGLOBIN 27 PG (26.0-33.0); MEAN CORPUSCULAR HGB CONC 33 g/dl (31.0-36.0); MEAN CORPUSCULAR VOLUME 83 fL (82-100); MONOCYTES # (AUTO) 0.6 /CMM (0.1-1.30); MONOCYTES % (AUTO) 9.8 % (2.0-12.0); NEUTROPHILS # (AUTO) 2.7 /CMM (1.8-8.9); NEUTROPHILS % (AUTO) 47.6 % (43.0-81.0); PLATELET COUNT (AUTO) 284 /CMM (150-450); RDW COEFFICIENT OF VARIATION 15.4 (11.5-15.0); RED BLOOD CELL COUNT(AUTO) 3.95 MIL/uL (4.0-5.2); WHITE BLOOD COUNT (AUTO) 5.7 K/uL (4.3-11.0)
[2017-09-09 07:38] LABS: ALANINE AMINOTRANSFERASE 15 U/L (12-78); ALBUMIN 2.9 g/dL (3.4-5.0); ALKALINE PHOSPHATASE 63 U/L (46-116); ASPARTATE AMINOTRANSFERASE 25 U/L (15-37); BILIRUBIN,TOTAL 0.3 mg/dL (0.2-1.0); CALCIUM, SERUM 9.1 mg/dL (8.5-10.1); CARBON DIOXIDE 29 mmol/L (21-32); CHLORIDE 110 mmol/L (98-107); CREATININE 0.8 mg/dL (0.6-1.3); GLUCOSE 81 mg/dL (74-106); PHOSPHORUS 3.5 mg/dL (2.5-4.9); POTASSIUM 3.7 mmol/L (3.5-5.1); SODIUM SERUM 145 mmol/L (136-145); TOTAL PROTEIN, SERUM 7.2 g/dL (6.4-8.2); UREA NITROGEN, BLOOD 10 mg/dL (7-18)
[2017-09-09 07:50] LABS: CHOLESTEROL 148 mg/dL (<200); HDL CHOLESTEROL 79 mg/dL (40-60); LDL 67 mg/dL (0-99); THYROID STIMULATING HORMONE 1.135 uIU/mL (0.358-3.74); TRIGLYCERIDES 54 mg/dL (30-150)
[2017-09-09 08:00] VITALS: BP 141/72
[2017-09-09] MEDS: DONEPEZIL 5 MG TABLET PO SCH (09:10)
[2017-09-09] MEDS: GABAPENTIN 300 MG CAPSULE PO SCH (09:11)
[2017-09-09] MEDS: BUPROPION XL 150 MG TAB.ER.24 PO SCH (09:11)
[2017-09-09] MEDS: QUETIAPINE FUMARATE 25 MG TABLET PO SCH ×2 (09:11→16:48)
[2017-09-09] MEDS: FOLIC ACID 1 MG TABLET PO SCH (09:11)
[2017-09-09] MEDS: ATENOLOL 25 MG TABLET PO SCH ×2 (09:11→16:47)
[2017-09-09] MEDS: AMLODIPINE BESYLATE 2.5 MG TABLET PO SCH (09:11)
[2017-09-09] MEDS: LISINOPRIL (5MG) 5 MG TABLET PO SCH (09:11)
[2017-09-09] MEDS: FLUOXETINE HCL 20 MG CAPSULE PO SCH (09:11)
--- NOTE | 2017-09-09 15:17 | NUR ---
GPS/RN-NOTES PATIENT STILL C/O 02/12 BOTH SHOULDER PAIN AND REQUESTING FOR PAIN MEDICATIONS. NORCO 5/325MG P.O GIVEN PRN ORDER. WILL CONT. MONITORING FOR SAFETY.
[2017-09-09 16:00] VITALS: BP 136/71
[2017-09-09 20:10] VITALS: BP 123/78
[2017-09-09] MEDS: ACETAMINOPHEN 325 MG TABLET PO PRN (20:23)
[2017-09-09 22:17] VITALS: BP 151/80
[2017-09-10] MEDS: HYDROCODONE/APAP 5/325MG 1 EACH TABLET PO PRN ×3 (05:13→19:39)
[2017-09-10 08:00] VITALS: BP 127/77
[2017-09-10] MEDS: ACETAMINOPHEN 325 MG TABLET PO PRN ×2 (08:49→23:08)
[2017-09-10] MEDS: FLUOXETINE HCL 20 MG CAPSULE PO SCH (08:49)
[2017-09-10] MEDS: LISINOPRIL (5MG) 5 MG TABLET PO SCH (08:50)
[2017-09-10] MEDS: FOLIC ACID 1 MG TABLET PO SCH (08:50)
[2017-09-10] MEDS: ATENOLOL 25 MG TABLET PO SCH ×2 (08:50→16:48)
[2017-09-10] MEDS: QUETIAPINE FUMARATE 25 MG TABLET PO SCH ×2 (08:50→16:47)
[2017-09-10] MEDS: DONEPEZIL 5 MG TABLET PO SCH (08:50)
[2017-09-10] MEDS: GABAPENTIN 300 MG CAPSULE PO SCH (08:50)
[2017-09-10] MEDS: BUPROPION XL 150 MG TAB.ER.24 PO SCH (08:50)
[2017-09-10] MEDS: AMLODIPINE BESYLATE 2.5 MG TABLET PO SCH (08:50)
--- NOTE | 2017-09-10 10:36 | NUR ---
Initial Discharge Note: [place] [address] [address] / [phone] with her granddaughter. Patient states that this is her house and that her granddaughter moved in with her [true in accordance with last hospitalization statements]. Patient states that she does not want to live with granddaughter anymore and wants to move to [place] to live with her niece. Patient stated that she does not want her granddaugther, Myriam [phone], contacted. SW asked patient is she has the contact information for her niece. Patient states that it is in her phone, but that her phone is in a safe. SW stated that she will ask DRAIN TILE MACHINE OPERATOR to bring up phone so that patient has extract niece's contact information from there. SW to call niece and verify if patient is able to live with her. Patient does not want any alternative placement and does not want SNF or board and care.
[2017-09-10 16:00] VITALS: BP 112/75
[2017-09-10 20:09] VITALS: BP 129/86
[2017-09-10] MEDS: TEMAZEPAM 7.5 MG CAPSULE PO PRN (21:51)
[2017-09-11] MEDS: HYDROCODONE/APAP 5/325MG 1 EACH TABLET PO PRN ×3 (05:46→18:59)
[2017-09-11 08:00] VITALS: BP 147/90
[2017-09-11] MEDS: FOLIC ACID 1 MG TABLET PO SCH (08:35)
[2017-09-11] MEDS: GABAPENTIN 300 MG CAPSULE PO SCH (08:35)
[2017-09-11] MEDS: FLUOXETINE HCL 20 MG CAPSULE PO SCH (08:35)
[2017-09-11] MEDS: LISINOPRIL (5MG) 5 MG TABLET PO SCH (08:35)
[2017-09-11] MEDS: QUETIAPINE FUMARATE 25 MG TABLET PO SCH ×2 (08:36→16:28)
[2017-09-11] MEDS: ATENOLOL 25 MG TABLET PO SCH ×2 (08:36→16:28)
[2017-09-11] MEDS: DONEPEZIL 5 MG TABLET PO SCH (08:36)
[2017-09-11] MEDS: AMLODIPINE BESYLATE 2.5 MG TABLET PO SCH (08:36)
[2017-09-11] MEDS: BUPROPION XL 150 MG TAB.ER.24 PO SCH (08:36)
--- NOTE | 2017-09-11 12:32 | NUR ---
RN NOTE: PATIENT STATES SHE IS HAVING 8/10 SHOULDER PAIN. HYDROCODONE GIVEN.
[2017-09-11 16:18] VITALS: BP 120/74
[2017-09-11 19:59] VITALS: BP 115/74
[2017-09-11 20:00] VITALS: BP 115/74
[2017-09-11] MEDS: ACETAMINOPHEN 325 MG TABLET PO PRN (21:35)
[2017-09-11] MEDS: TEMAZEPAM 7.5 MG CAPSULE PO PRN (21:35)
[2017-09-12] MEDS: HYDROCODONE/APAP 5/325MG 1 EACH TABLET PO PRN ×3 (06:16→20:02)
[2017-09-12 08:03] VITALS: BP 157/91
[2017-09-12] MEDS: QUETIAPINE FUMARATE 25 MG TABLET PO SCH ×2 (09:06→16:37)
[2017-09-12] MEDS: FLUOXETINE HCL 20 MG CAPSULE PO SCH (09:06)
[2017-09-12] MEDS: ATENOLOL 25 MG TABLET PO SCH ×2 (09:06→16:38)
[2017-09-12] MEDS: AMLODIPINE BESYLATE 2.5 MG TABLET PO SCH (09:06)
[2017-09-12] MEDS: BUPROPION XL 150 MG TAB.ER.24 PO SCH (09:06)
[2017-09-12] MEDS: FOLIC ACID 1 MG TABLET PO SCH (09:06)
[2017-09-12] MEDS: DONEPEZIL 5 MG TABLET PO SCH (09:06)
[2017-09-12] MEDS: LISINOPRIL (5MG) 5 MG TABLET PO SCH (09:06)
[2017-09-12] MEDS: GABAPENTIN 300 MG CAPSULE PO SCH (09:06)
[2017-09-12] MEDS: ACETAMINOPHEN 325 MG TABLET PO PRN ×2 (10:29→21:11)
--- NOTE | 2017-09-12 10:29 | NUR ---
RN NOTE: PATIENT STATES SHE HAS 6/10 PAIN. ACETAMINOPHEN 650 MG GIVEN.
[2017-09-12 16:09] VITALS: BP 128/76
--- NOTE | 2017-09-12 20:03 | NUR ---
Hydrocodone 5/325 mg tab 1 po given for pain, lt/rt. shoulder, 8/10 on pain scale.
[2017-09-12 20:24] VITALS: BP 114/66
--- NOTE | 2017-09-12 21:12 | NUR ---
PATIENT STILL C/O MILD PAIN ON BOTH OF HER SHOULDERS, 3/10 ON PAIN SCALE, TYLENOL 650 MG TAB PO GIVEN.
[2017-09-12] MEDS: TEMAZEPAM 7.5 MG CAPSULE PO PRN (22:00)
--- NOTE | 2017-09-12 22:02 | NUR ---
RESTORIL 7.5 MG PO GIVEN FOR INSOMNIA.
--- NOTE | 2017-09-13 00:09 | NUR ---
PATIENT SLEEPING AT THIS TIME.
[2017-09-13] MEDS: HYDROCODONE/APAP 5/325MG 1 EACH TABLET PO PRN ×4 (02:22→21:26)
--- NOTE | 2017-09-13 02:26 | NUR ---
Patient woke up in pain both on shoulders, 8/10 on pain scale, Putnam 5/325 mg tab po given.
[2017-09-13] MEDS: ACETAMINOPHEN 325 MG TABLET PO PRN (07:10)
--- NOTE | 2017-09-13 07:10 | NUR ---
Patient up to tne nurse's station, c/o pain both shoulders, 3/10 on pain scale, Tylenol 650 mg tab 1 po given.
[2017-09-13 08:00] VITALS: BP 143/81
[2017-09-13] MEDS: GABAPENTIN 300 MG CAPSULE PO SCH (09:17)
[2017-09-13] MEDS: BUPROPION XL 150 MG TAB.ER.24 PO SCH (09:17)
[2017-09-13] MEDS: ATENOLOL 25 MG TABLET PO SCH ×2 (09:18→16:59)
[2017-09-13] MEDS: FLUOXETINE HCL 20 MG CAPSULE PO SCH (09:18)
[2017-09-13] MEDS: FOLIC ACID 1 MG TABLET PO SCH (09:18)
[2017-09-13] MEDS: DONEPEZIL 5 MG TABLET PO SCH (09:19)
[2017-09-13] MEDS: QUETIAPINE FUMARATE 25 MG TABLET PO SCH ×3 (09:19→16:59)
[2017-09-13] MEDS: LISINOPRIL (5MG) 5 MG TABLET PO SCH (09:19)
[2017-09-13] MEDS: AMLODIPINE BESYLATE 2.5 MG TABLET PO SCH (09:20)
--- NOTE | 2017-09-13 09:24 | NUR ---
GPS/RN-NOTES PATIENT C/O 05/15 BOTH SHOULDER PAIN AND REQUESTING FOR NORCO. NORCO 5/325MG P.O GIVEN ORDER. WILL CONT. MONITORING FOR SAFETY.
--- NOTE | 2017-09-13 15:22 | NUR ---
GPS/RN-NOTES PATIENT C/O 01/13 BOTH SHOULDER PAIN AND REQUESTING FOR NORCO. NORCO 5/325MG P.O GIVEN ORDER. WILL CONT. MONITORING FOR SAFETY.
[2017-09-13 16:00] VITALS: BP 111/57
--- NOTE | 2017-09-13 19:35 | NUR ---
PATIENT DISCHARGED TO HOME, PICKED UP BY HER DAUGHTER OLGA, HOME VIA AMBULANCE. VITALS 120/82, 16, 98.2, 85, 97% SATURATION ON ROOM AIR. CONDITION STABLE. REPORT GIVEN TO THE PARAMEDICS./
[2017-09-13 20:00] VITALS: BP 130/81
--- NOTE | 2017-09-13 20:12 | NUR ---
PATIENT WAS DISCHARGED HOME TO [address] [place] [address], ACCOMPANIED BY HER DAUGHTER DAWIT
--- NOTE | 2017-09-13 21:27 | NUR ---
NORCO 5/325 MG TAB 1 PO GIVEN 8/10 ON PAIN SCALE, C/O PAIN LEFT AND RIGHT SHOULDER.
--- NOTE | 2017-09-13 23:48 | NUR ---
PATIENT SLEEPING AT THIS TIME, PAIN PILL EFFECTIVE.
[2017-09-14 08:00] VITALS: BP 158/90
[2017-09-14] MEDS: HYDROCODONE/APAP 5/325MG 1 EACH TABLET PO PRN ×3 (08:09→20:12)
[2017-09-14] MEDS: DONEPEZIL 5 MG TABLET PO SCH (09:28)
[2017-09-14] MEDS: FLUOXETINE HCL 20 MG CAPSULE PO SCH (09:28)
[2017-09-14] MEDS: QUETIAPINE FUMARATE 25 MG TABLET PO SCH ×3 (09:28→17:28)
[2017-09-14] MEDS: BUPROPION XL 150 MG TAB.ER.24 PO SCH (09:28)
[2017-09-14] MEDS: FOLIC ACID 1 MG TABLET PO SCH (09:29)
[2017-09-14] MEDS: AMLODIPINE BESYLATE 2.5 MG TABLET PO SCH (09:29)
[2017-09-14] MEDS: GABAPENTIN 300 MG CAPSULE PO SCH (09:29)
[2017-09-14] MEDS: ATENOLOL 25 MG TABLET PO SCH ×2 (09:29→17:28)
[2017-09-14] MEDS: LISINOPRIL (5MG) 5 MG TABLET PO SCH (09:29)
--- NOTE | 2017-09-14 11:47 | NUR ---
Discharge Planning: Patient is being discharged today. JANETH attempted to contact pt's granddaughter Myriam [phone] to inform her of this. Please note that Myriam lives with grandmother, but that patient pays rent and wishes to return home. Patient is alert and oriented x4. Patient is ambulatory. JANETH left voicemail for Myriam, asking her for a call back.
--- NOTE | 2017-09-14 11:48 | NUR ---
Discharge Planning: JANETH is attempting to secure transportation for patient. JANETH called patient's manager lsw of the assisted living facility, Anand [phone] / [phone]. JANETH left a voicemail for him. Anand returned the call and left a message for JANETH. JANETH then called him back and left another voicemail. JANETH wanted to discuss the transportation with him, as patient stated that facility can help arrange.
--- NOTE | 2017-09-14 12:49 | NUR ---
GPS/RN pt 's discharge packet ready with exit care and prescriptions from dr james and dr estrada. pt refused to sign d/c paperwork and to let RN to take pictures. no si otr hi at this time noted.
--- NOTE | 2017-09-14 12:53 | NUR ---
Discharge Planning: Patient stated that she would like her niece to pick her up. SW called patient's niece, Ashli Galindo [phone]. Ashli stated that she will be able to pick patient up at 4pm today. Patient is in agreement. SW also left a voicemail for patient's granddaughter/DPBARBARA Miguel [phone] stating that patient will be discharging today between 3 and 4pm.
--- NOTE | 2017-09-14 12:53 | NUR ---
Discharge Planning: JANETH spoke with patient's meat department manager of the assisted living facility, Anand [phone] / [phone]. Clarke stated that he had absolutely no problems with patient returning to the facility.
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
--- NOTE | 2017-09-14 15:50 | NUR ---
Discharge Note: Patient will be discharged back to her long term facility, [facility] [address] [facility] [address] [place] [address] / [phone]. Patients granddaughter has been notified Myriam [phone]. At patients request, patient will be picked up by her niece, Ashli Galindo [phone] in her private vehicle at 5pm. Upon discharge, patient is cooperative and calm. Patient denies visual and auditory hallucinations. Patient denies suicidal and homicidal ideation. Patient is pleasant and compliant. Patient will follow up with her allergist immunologist, Dr. Brown [address] [facility] [address], [place] [address] on September 18 at 10:15am. Patient will also see her psychiatrist, Dr. Stokes [address] [place], [place] [address] Patient was provided a referral for [address] [phone] and was encouraged to present at 9am for intake screening. Additional resources included the [facility] [address] [place] [address] and [facility] [address] [place] [address] .
[2017-09-14 16:10] VITALS: BP 120/72
--- NOTE | 2017-09-14 16:49 | NUR ---
GPS/RN D/C CANCELLED, DISCHARGE ORDERS FROM DR COOMBS AND VIDHYA RESCINDED
--- NOTE | 2017-09-14 16:58 | NUR ---
GPS/RN PT'S SAULO HERNANDEZ NOTIFIED OF D/C CANCELLATION OVER THE PHONE.
[2017-09-14 20:00] VITALS: BP 129/89
--- NOTE | 2017-09-14 20:21 | NUR ---
PT C/O COUGH AND SORE THROAT AND REQUESTED FOR COUGH MEDICINE AND LOZENGES, PLACED A CALL TO DR. RODRIGUEZ, AWAITING FOR A CALL BACK.
--- NOTE | 2017-09-14 20:50 | NUR ---
RECEIVED A CALL BACK FROM DR. RODRIGUEZ. RELAYED PT'S REQUEST WITH N.O NOTED AND CARRIED OUT.
[2017-09-14] MEDS: MENTHOL/CETYLPYRD (CEPACOL) 1 LOZ LOZENGE PO PRN (21:11)
[2017-09-14] MEDS: TEMAZEPAM 7.5 MG CAPSULE PO PRN (21:12)
[2017-09-15] MEDS: MENTHOL/CETYLPYRD (CEPACOL) 1 LOZ LOZENGE PO PRN ×4 (03:38→21:02)
[2017-09-15] MEDS: HYDROCODONE/APAP 5/325MG 1 EACH TABLET PO PRN ×4 (03:39→21:02)
--- NOTE | 2017-09-15 03:40 | NUR ---
CEPACOL 1 LOZENGE PO GIVEN, C/O SORE THROAT
--- NOTE | 2017-09-15 03:41 | NUR ---
C/O PAIN ON BOTH SHOULDER, 7/10 ON PAIN SCALE, NORCO 5/325 MG TAB 1 PO GIVEN.
[2017-09-15 08:00] VITALS: BP 145/77
[2017-09-15] MEDS: FLUOXETINE HCL 20 MG CAPSULE PO SCH (08:53)
[2017-09-15] MEDS: QUETIAPINE FUMARATE 25 MG TABLET PO SCH ×3 (08:53→16:57)
[2017-09-15] MEDS: BUPROPION XL 150 MG TAB.ER.24 PO SCH (08:53)
[2017-09-15] MEDS: DONEPEZIL 5 MG TABLET PO SCH (08:53)
[2017-09-15] MEDS: GABAPENTIN 300 MG CAPSULE PO SCH (08:53)
[2017-09-15] MEDS: FOLIC ACID 1 MG TABLET PO SCH (08:53)
[2017-09-15] MEDS: ATENOLOL 25 MG TABLET PO SCH ×2 (08:54→16:58)
[2017-09-15] MEDS: AMLODIPINE BESYLATE 2.5 MG TABLET PO SCH (08:54)
[2017-09-15] MEDS: LISINOPRIL (5MG) 5 MG TABLET PO SCH (08:54)
[2017-09-15 16:00] VITALS: BP 121/91
[2017-09-15 20:00] VITALS: BP 153/85
[2017-09-15] MEDS: TEMAZEPAM 7.5 MG CAPSULE PO PRN (22:06)
[2017-09-16] MEDS: MENTHOL/CETYLPYRD (CEPACOL) 1 LOZ LOZENGE PO PRN ×3 (03:25→15:33)
[2017-09-16] MEDS: HYDROCODONE/APAP 5/325MG 1 EACH TABLET PO PRN ×3 (03:25→18:19)
[2017-09-16 08:12] VITALS: BP 138/84
[2017-09-16] MEDS: FLUOXETINE HCL 20 MG CAPSULE PO SCH (08:15)
[2017-09-16] MEDS: BUPROPION XL 150 MG TAB.ER.24 PO SCH (08:15)
[2017-09-16] MEDS: GABAPENTIN 300 MG CAPSULE PO SCH (08:16)
[2017-09-16] MEDS: QUETIAPINE FUMARATE 25 MG TABLET PO SCH ×3 (08:16→16:26)
[2017-09-16] MEDS: FOLIC ACID 1 MG TABLET PO SCH (08:16)
[2017-09-16] MEDS: DONEPEZIL 5 MG TABLET PO SCH (08:16)
[2017-09-16] MEDS: AMLODIPINE BESYLATE 2.5 MG TABLET PO SCH (08:17)
[2017-09-16] MEDS: LISINOPRIL (5MG) 5 MG TABLET PO SCH (08:17)
[2017-09-16] MEDS: ATENOLOL 25 MG TABLET PO SCH ×2 (08:18→16:27)
--- NOTE | 2017-09-16 09:15 | NUR ---
[id number]: GAVE CEPACOL SORE LOZENGE DUE TO SORE THROAT UPON PT REQUEST AND WILL CONTINUE TO MONITOR FOR EFFECTIVENESS OF MEDICATION.
--- NOTE | 2017-09-16 11:48 | NUR ---
[id number]: GAVE NORCO 5/325 MG PO DUE TO 8/10 GENERALIZED PAIN UPON PT REQUEST AND WILL CONTINUE TO MONITOR FOR EFFECTIVENESS OF MEDICATION
--- NOTE | 2017-09-16 15:33 | NUR ---
[id number]: GAVE CEPACOL SORE LOZENGE DUE TO SORE THROAT UPON PT REQUEST AND WILL CONTINUE TO MONITOR FOR EFFECTIVENESS OF MEDICATION.
[2017-09-16 16:47] VITALS: BP 134/92
--- NOTE | 2017-09-16 18:19 | NUR ---
[id number]: GAVE NORCO 5/325 MG PO DUE TO 8/10 GENERALIZED PAIN UPON PT REQUEST AND WILL CONTINUE TO MONITOR FOR EFFECTIVENESS OF MEDICATION
[2017-09-16 19:52] VITALS: BP 124/84
[2017-09-16] MEDS: ACETAMINOPHEN 325 MG TABLET PO PRN (20:22)
[2017-09-16] MEDS: GUAIFENESIN/CODEINE 10 ML UDC PO PRN (22:14)
[2017-09-16] MEDS: TEMAZEPAM 7.5 MG CAPSULE PO PRN (23:14)
[2017-09-17] MEDS: HYDROCODONE/APAP 5/325MG 1 EACH TABLET PO PRN ×4 (00:22→22:47)
--- NOTE | 2017-09-17 00:47 | NUR ---
Pt has been with depressed mood & seeking Narcotics. Her affect is flat/anxious. She is A/O x4. She is argumentative when it comes to the timing of her Narcotics.
--- NOTE | 2017-09-17 06:35 | NUR ---
GPS RN NOTE, PATIENT HAS A COMPLAINT OF LOWER BACK PAIN AT 6 OUT OF 10 ON THE PAIN SCALE AND IS REQUESTING NORCO. PATIENT VITAL SIGNS ARE STABLE. GAVE NORCO 5-325 MG 1 TAB PO Q6HR PRN. WILL REASSESS FOR PAIN AND I WILL CONTINUE TO MONITOR THIS PATIENT.
[2017-09-17 08:00] VITALS: BP 145/95
[2017-09-17] MEDS: ATENOLOL 25 MG TABLET PO SCH ×2 (08:17→16:47)
[2017-09-17] MEDS: LISINOPRIL (5MG) 5 MG TABLET PO SCH (08:17)
[2017-09-17] MEDS: DONEPEZIL 5 MG TABLET PO SCH (08:18)
[2017-09-17] MEDS: FOLIC ACID 1 MG TABLET PO SCH (08:18)
[2017-09-17] MEDS: GABAPENTIN 300 MG CAPSULE PO SCH (08:18)
[2017-09-17] MEDS: AMLODIPINE BESYLATE 2.5 MG TABLET PO SCH (08:18)
[2017-09-17] MEDS: BUPROPION XL 150 MG TAB.ER.24 PO SCH ×2 (08:19→08:20)
[2017-09-17] MEDS: QUETIAPINE FUMARATE 25 MG TABLET PO SCH ×3 (08:19→16:47)
[2017-09-17] MEDS: FLUOXETINE HCL 20 MG CAPSULE PO SCH (08:19)
--- NOTE | 2017-09-17 09:00 | NUR ---
PLEASE NOTE THAT PATIENT DID NOT DISCHARGE. SW contacted patient's granddaughter, Myriam [phone], and left a her a voicemail asking for a call back. SW provided her direct contact information.
--- NOTE | 2017-09-17 10:19 | NUR ---
Discharge Planning: JANETH faxed inquiries to [facility] [address] [address] [facility] / fax number [phone] [facility] [address] [place] [address] / fax number [phone] [facility], [address] [place] [address]; / fax number [phone] JANETH to follow up.
[2017-09-17] MEDS: GUAIFENESIN/CODEINE 10 ML UDC PO PRN (10:52)
--- NOTE | 2017-09-17 10:52 | NUR ---
[id number]: GAVE ROBITUSSIN AC SYRUP 10 ML PO DUE TO SORE THROAT UPON PT REQUEST AND WILL CONTINUE TO MONITOR FOR EFFECTIVENESS OF MEDICATION.
--- NOTE | 2017-09-17 12:43 | NUR ---
Discharge Planning: [facility] [address] [facility] / fax number [phone] --> patient is accepted, Myriam to tour facility [facility] [address] [place] [address] / fax number [phone] --> patient not accepted to [facility], [address] [place] [address]; / fax number [phone] -->patient is accepted, Myriam to [facility]
--- NOTE | 2017-09-17 13:23 | NUR ---
[id number]: GAVE NORCO 5/325 MG PO DUE TO GENERALIZED PAIN 03/15 UPON PT REQUEST AND WILL CONTINUE TO MONITOR FOR EFFECTIVENESS OF MEDICATION
[2017-09-17 16:00] VITALS: BP 120/87
[2017-09-17 19:50] VITALS: BP 137/95
[2017-09-17] MEDS: TEMAZEPAM 7.5 MG CAPSULE PO PRN (21:35)
[2017-09-18] MEDS: GUAIFENESIN/CODEINE 10 ML UDC PO PRN (03:57)
[2017-09-18] MEDS: HYDROCODONE/APAP 5/325MG 1 EACH TABLET PO PRN ×2 (06:45→13:41)
[2017-09-18 08:00] VITALS: BP 135/80
[2017-09-18] MEDS: BUPROPION XL 150 MG TAB.ER.24 PO SCH (08:37)
[2017-09-18] MEDS: GABAPENTIN 300 MG CAPSULE PO SCH (08:37)
[2017-09-18] MEDS: FLUOXETINE HCL 20 MG CAPSULE PO SCH (08:37)
[2017-09-18] MEDS: QUETIAPINE FUMARATE 25 MG TABLET PO SCH ×2 (08:37→13:04)
[2017-09-18] MEDS: ATENOLOL 25 MG TABLET PO SCH (08:37)
[2017-09-18] MEDS: AMLODIPINE BESYLATE 2.5 MG TABLET PO SCH (08:37)
[2017-09-18] MEDS: DONEPEZIL 5 MG TABLET PO SCH (08:37)
[2017-09-18 08:38] VITALS: BP 135/80
[2017-09-18] MEDS: LISINOPRIL (5MG) 5 MG TABLET PO SCH (08:38)
[2017-09-18] MEDS: FOLIC ACID 1 MG TABLET PO SCH (08:38)
--- NOTE | 2017-09-18 11:57 | NUR ---
Discharge Planning: JANETH had a couple of conversation with Myriam, patient's DPOA and granddaughter [phone]. Myriam [facility] and wanted her grandmother to be placed there. Myriam stated that she wanted her grandmother in the open unit vs the locked unit at [facility]. JANETH spoke with patient's psychiatrist and with Edmundo from [facility] admissions and arranged for an open unit trial for patient. Myriam asked JANETH to make a written agreement with [facility] that, if patient attempts to elope from [facility], that she will be transferred to [facility]. JANETH stated that she is unable to do that, but advised Myriam to make the written request and have it on file at [facility]. JANETH stated that there are no guarantees for this. Myriam understood. Myriam had questions regarding patients medications and JANETH transferred her to the patients nurse. Myriam had a conversation with BRYANT Suarez and with Charge Nurse Shine regarding the medications. JANETH confirmed with Myriam that she was pleased with [facility] and that the discharge was set for today for patient. Myriam agreed. Addendum: 09/18/17 at 1213 by LEE FOWLER Myriam requested that JANETH speak with patient regarding discharge and tell her that it does not have to be a permanent arrangement. Myriam stated that, if her grandmother does well, then she will be able to go home. JANETH reiterated this message to the patient.
--- NOTE | 2017-09-18 12:00 | NUR ---
Discharge Planning: SW spoke with patient regarding the discharge plan. Patient stated that she wanted to return to her apartment. SW explained that patient needs to get stronger and healthier before returning to her apartment. SW stated that, if patient makes good progress, the SNF does not have to be permanent. Patient seemed to agree. Patient stated that she will go today to SNF.
--- NOTE | 2017-09-18 12:14 | NUR ---
Discharge Note: Patient will discharge to [facility] [address] [facility] via ambulance transportation arranged by , trip #[id number]. Patients DPBARBARA and granddaughter Myriam , is aware and in agreement. At the time of discharge, patient is cooperative. Patient denies suicidal and homicidal ideation. At the facility, patient will be followed by technology support analyst Dr. Gonzalez [address] [address] [phone] and psychiatrist, Dr. Dhaliwal [address] [place] [address] .
--- NOTE | 2017-09-18 13:51 | NUR ---
GPS/RN-NOTES PATIENT STILL C/O 03/15 BOTH SHOULDER PAIN AND REQUESTING FOR PAIN MEDICATIONS. NORCO 5/325MG P.O GIVEN PRN ORDER. WILL CONT. MONITORING FOR SAFETY.
--- NOTE | 2017-09-18 15:52 | NUR ---
GPS/RN-NOTES PATIENT DISCHARGE TO [facility] TODAY. DR. SWANSON AND DR. SMALL AWARE AND AGREES OF PATIENT DISCHARGE. REPORT WAS GIVEN TO LOUIS ( PROFESSOR OF FAMILY MEDICINE). PATIENT DID NOT VERBALIZE SI/HI,DENIES VISUAL/AUDITORY HALLUCINATIONS AT THE TIME OF DISCHARGE. PER NOTES PATIENT BETTY AND GRAND DAUGHTER CARLOS ( [phone]) WAS AWARE OF THE DISCHARGE. PATIENT LEFT THE UNIT IN STABLE CONDITION WITH ALL HER BELONGINGS INCLUDING HER CELL PHONE. TABLE GAMES MANAGER BY AMBULANCE VIA GURNEY WITH TWO STAFF ASSIST.
== END 2017-09-18 15:50 | DRG 885 ==
LOC: GPS 00:25
PROVIDERS: ADMIT Psychiatry & Neurology Psychiatry; ATTEND Psychiatry & Neurology Psychiatry
DX: F33.3 Major depressive disorder, recurrent, severe with psychotic symptoms (principal); F03.91 Unspecified dementia, unspecified severity, with behavioral disturbance; G62.9 Polyneuropathy, unspecified; E78.5 Hyperlipidemia, unspecified; I10 Essential (primary) hypertension; Z79.899 Other long term (current) drug therapy
CPT/HCPCS: 36415; 80053-TC; 80061-TC; 83735-TC; 84100-TC; 84443-TC; 85025-TC; 87081-TC; A4606; A6402; Z7610

== ENCOUNTER → 2017-09-08 | Emergency (ER) | payer MEDICARE, MEDICAID ==
[~2017-09-08] MED LIST changes: +ACET-868 PO; +AMLO2.5T PO; +ASPI-1169 PO; -ASPI81TA2 PO; +BUPR100T5 PO; +BUPR1PAT3 TD; +DOCU-141 PO; -DOCU-25 PO; -DONE5TAB3 PO; +DONE5TAB7 PO; +FLUO10CA26 PO; +FOLI1TAB16 PO; +LORA0.5T PO; +MORP15TA60 PO; -MORP30CP13 PO; +NITR0.4T48 SL; -NITR0.4T6 SL; +QUET25TA PO; +TEMA7.5C12 PO; +ZOLP5TAB8 PO
== END | disposition left against medical advice (07) ==
LOC: ER 00:02
DX: Z75.3 Unavailability and inaccessibility of health-care facilities (principal)

== ENCOUNTER → 2017-09-26 | Emergency (ER) | payer MEDICARE, MEDICAID ==
[~2017-09-26] VITALS: Ht 162.6 cm; Wt 54.4 kg
[~2017-09-26] MED LIST changes: -ACET-868 PO; +AMLO2.5T PO; -ASPI-1169 PO; +BUPR1PAT3 TD; -DOCU-141 PO; -FLUO10CA26 PO; +FOLI1TAB16 PO; -LORA0.5T PO; -MORP15TA60 PO; -OXYC-128 PO; -QUET25TA PO; -TEMA7.5C12 PO
--- NOTE | 2017-09-26 23:14 | NUR ---
PT CAME FROM HOME S/P FALL OUT OF BED, C/O PAIN TO R ELBOW 09/15, DENIES KO/TRAUMA TO HEAD, A/O X 4/GCS 15, BREATHING EVEN/UNLABORED, SINUS BOSSMAN ON FLUE LINING DIPPER, SKIN WARM/DRY/INTACT.
--- NOTE | 2017-09-27 00:30 | NUR ---
[place] DISPATCHER SATHYA WAS CALLED AND A BLS TRANSPORT WAS ARRANGED AND 10 MIN ETA WAS GIVEN
--- NOTE | 2017-09-27 00:44 | NUR ---
REPORT GEING GIVEN TO MANINKay EMT
[2017-09-27 00:49] VITALS: BP 140/92
== END | disposition home or self-care (01) ==
LOC: ER 22:48
DX: S50.01XA Contusion of right elbow, initial encounter (principal); I10 Essential (primary) hypertension; I48.91 Unspecified atrial fibrillation; K21.9 Gastro-esophageal reflux disease without esophagitis; K44.9 Diaphragmatic hernia without obstruction or gangrene; Z88.2 Allergy status to sulfonamides; Z88.8 Allergy status to other drugs, medicaments and biological substances; W06.XXXA Fall from bed, initial encounter; Y93.89 Activity, other specified; Y92.89 Other specified places as the place of occurrence of the external cause; Y99.8 Other external cause status
CPT/HCPCS: 73060-TC; A4606; Z7610